=== PATIENT | male | born 1990 | race Caucasian/White ===

== ENCOUNTER 2023-09-16 08:00 | Outpatient (RCR) | payer MEDICAID, SELFPAY ==
--- NOTE | 2023-09-16 10:10 | BH.SGPN.GN ---
Behaviors/Verbalizations/Mental Status: [] Client alert and oriented, casual appearance. Eye contact fair. Motor activity appropriate. Speech within normal limits. Affect congruent, mood depressed and anxious. Thoughts linear, logical, no signs of hallucinations or delusions. Client Response/Progress/Benefit: []Pt quiet throughout group session. Did appear attentive during group discussions. Attentive during psychoeducation about Goal Setting. Listened during the discussion on common barriers which the group identified as: lack of motivation, making excuses, high expectations, fear of failure, and lack of support. Group also identified benefits sense of purpose, improved self-confidence, more motivation for other goals, and improved mental health. Seemed to benefit from increased awareness of mental health benefits of goals as well as psychoeducation on SMART goal criteria. Will continue in IOP to improve daily functioning, increase healthy coping, and prevent decompensation. Narrative Note: []
--- NOTE | 2023-09-16 11:00 | BH.SGPN.GN ---
Behaviors/Verbalizations/Mental Status: []Pt alert and oriented, casually dressed and groomed. Eye contact good. Motor activity appropriate. Speech within normal limits. Affect congruent, mood anxious and depressed. Thoughts linear, logical, no signs of hallucinations or delusions. Client Response/Progress/Benefit: [] Pt was engaged during discussion and willing to complete the worksheet challenging them to develop a personal SMART goal. Pt chose the goal of walking 2x in the next week. Pt stated this will improve motivation, increase confidence, and reduce isolation. Pt identified forgetting and low motivation as potential barriers. Identified solutions such as taking a walk with a friend or his dog, as well as setting a reminder in his phone. Pt receptive to identifying solutions for these barriers and willing to begin working on this goal. Benefited from this group by developing a short-term SMART goal related to mental health. Will continue IOP tx to increase healthy coping skill repertoire, stabilize mental health sx, and prevent decompensation. Narrative Note: []
--- NOTE | 2023-09-16 13:30 | BH.COMM ---
Communication Note Communication with Client Communication Note: Met with pt to complete initial paperwork and administer the CSSR-S screening and risk assessment. Pt is moderate per the CSSR-S screening and risk assessment. Pt denies any current suicidal ideations, but does have a history of chronic passive ideation, last occurring about a few days ago. Denies Hx of self-harming. Pt is future oriented. No guns at home. No stockpiles of medications. Pt receptive to discussion on reducing access to lethal means. Discussed case with Dr. Sanchez and pt will be admitted to [facility] tx with a diagnosis of F33.2
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
--- NOTE | 2023-09-18 09:30 | BH.NA ---
Physical Data Vital Signs Pulse Rate: 66 Blood Pressure: 125/81 Height/Weight Height: 1.7 m Weight:: 81.647 kg Weight in Pounds: 180.0 lbs Nutritional History Appetite Nutritional Instructions: Describe your appetite:: Good Additional nutritional information:: Client states he has gained about 20-30lbs in the last 2-3 months due to increased appetite. Client states he had a 150lb weight loss about 4 years ago. Functional Assessment Sleep Pattern Describe any problems with sleeping: Client states his sleep is erratic, stating sometimes he sleeps 3-4 hours and sometimes 8-10 hours. Sensory/Communication Assess Vision Problems Do you have any vision problems?: Glasses Medical Problems/History Pain Assessment Do you have acute or chronic pain?: No Additional History Additional comments:: Per client, ADHD and autism Surgical History Surgical History Have you had any surgeries? If so, list type and date:: No Substance Abuse Substance Abuse Please describe substance abuse in the last 30 days:: Client states he occasionally drinks alcohol. Client states he has been vaping nicotine off and on for 10 years. Client states he has been using marijuana multiple times per day for several years. Client denies current caffeine use. Mental Status Summary Mental Status Significant Findings/Observations on Appearance and Mood:: Client is alert and oriented x 4. Client is casually groomed. Client is cooperative with assessment. Client makes poor eye contact, usually looking down during assessment. Client's voice has normal rate and volume. Client has restricted affect. Client makes logical associations in conversation. Client denies delusions/hallucinations. Client denies SI. Suicide Assessment Suicidal Ideation Are you currently or have you been suicidal in the past?: Yes Suicidal Intentional Rating Scale (SIRS): Suicidal thoughts (past) (denies SI at this time) Physician Notification Past Psychiatric History MH Treatment Hx Past Psychiatric Medications:: Client states he had a bad reaction to SSRI's (Zoloft, Prozac) of lethargy and feeling more depressed. Client's record shows he was prescribed Lexapro. Client states he tried a few other meds but does not state what they were. Age of first mental health symptoms: Client states he first took medications for mental health since the age of 27. Describe (age, circumstance, etc) any past hospitalizations: None. Current providers for mental health treatment (counselor, psychiatrist, piano case and bench assembler, etc.): Geraldo at [facility] for counseling, client states he has seen Dawit Bhardwaj at [facility] for psychiatry in the past Fall Risk Assessment Age Age: Less than 60 Mental Status Mental Status: Willing & able to ask for assistance when needed Physical Status Physical Status: No problems Impairments Impairments: None Elimination Elimination: Continent AND independent Gait or Balance Gait or Balance: Walks independently Hx of Falls History of falls in the past 6 months: No known history Medications/Substances Medications/substances used within the past 24 hours or ordered to administer: None of the medications/substances list above Total Score Total Points:: 0 RN Summary of Impressions Impressions Recommendations Impressions: Psychiatric Issues: 1. Major depressive disorder, recurrent, severe without psychosis 2. Dysthymic disorder 3. Generalized anxiety disorder 4. PTSD 5. Nicotine and marijuana use disorders Level of Care How do the client's current symptoms and functional deficits support need for this level of care?: Client was referred to IOP by his outpatient therapist for increased depression. Client states his mental health lead him to quitting his job in May 2023. Client states he has been more depressed, has had erratic sleep, and states he has decreased his ADL's and his interaction with his family due to his depression. Client endorses anhedonia and thoughts of but denies SI. Client states he has tried several mental health medications in the past few years, but states he did not do well on SSRI's. IOP will promote gains and prevent further decompensation while providing social support and skills training.
[2023-09-18 09:50] VITALS: BP 125/81; PULSE 66
--- NOTE | 2023-09-18 11:08 | BH.SGPN.GN ---
Behaviors/Verbalizations/Mental Status: [] Pt alert and oriented, casually dressed and groomed. Eye contact poor. Motor activity appropriate. Speech within normal limits. Affect congruent, mood depressed. Thoughts linear, logical, no signs of hallucinations or delusions. Client Response/Progress/Benefit: []Pt engaged participant AEB listening attentively to others and providing input throughout group. Pt worked within their small group to identify strategies to manage inappropriate guilt. Pt did not share her personal example of inappropriate guilt, but he participated in the group activity. Pt seemed to benefit from learning about strategies to manage appropriate and inappropriate guilt. Pt will continue IOP tx to prevent decompensation, gain healthy coping skills, and reduce isolation. ? Narrative Note: []
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
--- NOTE | 2023-09-18 12:36 | BH.DR.ITP ---
Initial Treatment Plan Patient Information Visit Information: ADMISSION DATE: EXPECTED LOS: 4-6 weeks Problems/Symptoms Problem #1:: Depression Symptom:: Sadness, hopelessness, anhedonia, biological disruption of appetite and weight, biological disruption of sleep, low energy, decreased concentration, guilt, passive thoughts of , passive suicidal ideation Problem #2:: Anxiety Symptom:: Worry, rumination, panic attacks, hypervigilance, avoidance, flashbacks
--- NOTE | 2023-09-19 09:00 | BH.SGPN.GN ---
Behaviors/Verbalizations/Mental Status: [] Pt eye contact poor, casually dressed, motor activity appropriate, speech normal rate and tone, mood depressed, flat affect, thoughts linear and intact, no evidence of delusions or hallucinations. Per daily symptom tracker pt denies active SI and intention. Client Response/Progress/Benefit: [] Client appeared to listen attentively to others and sharing, mostly client appeared anxious throughout.. Client stated he did not have much to share. With assistance from therapist client able identify mental plan as showing up to IOP today despite not wanting to. Client stated his stressor is having to go to his daughter's dance recital in which she will have to see his daughter's biological dad. Appeared to benefit from support from peers. Will continue IOP tx to improve daily functioning, increase healthy coping, and prevent decompensation. Narrative Note: []
--- NOTE | 2023-09-19 10:10 | BH.SGPN.GN ---
Behaviors/Verbalizations/Mental Status: [] Eye contact is fair to good. Motor activity is appropriate. Appearance is casual. Speech is Appropriate. Mood is depressed. Affect is congruent. Thoughts are linear and logical. No evidence of psychosis. Client Response/Progress/Benefit: []Pt engaged participant AEB listening to others, engaging in activity, and providing feedback at times when prompted which is progress compared with earlier in the week. Attentive during psychoeducation and provided insight into obstacles that impede mental wellness. Pt shared with group current mental health reality and desired mental health reality. Stated he would like to get to a place where he feels more present and able to navigate his mental health sx and stressors without feeling controlled by them. Identified barriers to desired reality include: low motivation, negative self-talk, and isolation. Benefited from taking look at current mental health state and obstacles for progress. Pt to continue IOP tx to improve mood stability, reduce thought distortions, and prevent decompensation. Narrative Note: []
--- NOTE | 2023-09-19 11:05 | BH.SGPN.GN ---
Behaviors/Verbalizations/Mental Status: [] Eye contact is good. Motor activity is appropriate. Appearance is casual. Speech is Appropriate. Mood is anxious and depressed. Affect is congruent. Thoughts are linear and logical. No evidence of psychosis Client Response/Progress/Benefit: [] Pt was an active participant in group discussion and activity. Worked with group to identify strategies to help overcome barriers and obstacles to desired reality. Group developed strategies for the common barriers. Identified personal barriers to desired reality and choose one obstacle to work. Pt stated he wants to work on barrier of not accepting help by practicing asking for help with small tasks and building from there. Pt seemed to benefit from increased repertoire of healthy coping skills/strategies to overcome common barriers to moving forward. Pt is to continue IOP to improve confidence, increase healthy coping skill application, and prevent decompensation. Narrative Note: []
--- NOTE | 2023-09-19 14:29 | BH.MDN ---
Multi-Disciplinary Note Note 30-min Individual: Time Started:: 11:58 Date: 09/19/23 Purpose of session/treatment goals addressed:: To gather information on pt's current stressors, symptoms, triggers, history, and tx goals. Another goal was to build rapport and provide emotional support. Eye Contact:: Fair (tearful) Motor Activity:: Appropriate Appearance:: Casual Speech:: Appropriate and Soft Mood:: Anxious and Depressed Affect:: Constricted Thoughts:: Linear, Logical and No evidence of hallucinations/delusions noted Staff Interventions:: thought challenging, motivational interviewing, psychoeducation on: (maintenance cycles, negative core beliefs ), strengths perspective, treatment planning and goal setting Client Response:: Pt responded well to session, open to meeting with therapist. Pt reports he has benefitted from group so far this week and felt it was helpful to hear other people?s experiences in IOP. Pt shared she has been struggling with his mental health for a while now but it got worse after leaving his job in May. Pt shared he feels like a burden to his long-time girlfriend as he has not been helping much with household responsibilities or caregiving for her children, ages 6 & 8. Reports that he has struggled with getting up in the mornings and sleeps throughout the day. This has created some tension within his relationship as he recently missed one of the children?s dance recitals due to oversleeping. Pt shared he has no energy and labeled himself as lazy but she was receptive to challenging this label. Pt reported he is not finding enjoyment in anything lately and he wants to get back into hiking and playing music. Report she is otherwise unsure of what he would like to work on in therapy as he feels hopeless that anything will help. Believes he is beyond help, but was receptive of again challenging his thoughts. Pt receptive to goal setting as well as learning about depression maintenance cycles. Pt also appeared to benefit from emotional validation and encouragement from therapist as the first week of IOP can be overwhelming. Willing to complete negative core beliefs assessment for homework and identified a goal of playing Legos with the kids to try and allow himself the opportunity for enjoyment. Risks/Concerns:: Pt endorses fleeting passive thoughts of , but denies any SI, plan, or intent. Pt is future oriented and motivated. Progress Toward Goals/Plan:: Pt's first week of IOP tx and he reports so far benefitting from the group interaction and support. Pt wants to focus on reducing depression, feeling more engaged with his family, and finding a sense of connection to the world. Pt reports his girlfriend is supportive of his mental health and encouraging of him being here. Pt's symptoms are impacting his overall functioning and pt can benefit from continuing IOP tx to prevent further decompensation. Time Stopped:: 12:16
--- NOTE | 2023-09-23 09:01 | BH.SGPN.GN ---
Behaviors/Verbalizations/Mental Status: [] Pt eye contact fair, casually dressed, motor activity appropriate, speech normal rate and tone, mood anxious, constricted affect, thoughts linear and intact, no evidence of delusions or hallucinations. Per daily symptom tracker pt denies active SI and intention. Client Response/Progress/Benefit: [] Client appeared to listen attentively to others and sharing openly with group. Per daily sympton tracker client reports 4/5 for anxiety and 4/5 for depression. Client stated mental health positive as accomplishing goal over the weekend of walking at least two times. Client reported he ended up walking three times and really found it be helpful. Client reported additional positive as coming back to IOP this week feeling more present and having a better attitude. Stated current stressor is worried he won't be able to be himself for his daughter's upcoming birthday green party. Appeared to benefit from support from peers. Will continue IOP tx to improve daily functioning, increase healthy coping skills, and prevent decompensation.
--- NOTE | 2023-09-23 10:10 | BH.SGPN.GN ---
Behaviors/Verbalizations/Mental Status: [] Eye contact is good. Motor activity is appropriate. Appearance is casual. Speech is Appropriate. Mood is depressed. Affect is congruent. Thoughts are linear and logical. No evidence of psychosis. Client Response/Progress/Benefit: [] Limited participation in group discussions however was attentive. Participated in and was engaged during experiential activity. Able to relate experiential activity to group topic of FOF. Attentive during interactive discussion on what failure means to the group in which peers identified and defined failure and Fear of Failure. Attentive as peers discussed the impact of fear of failure on mental health identifying that it can cause procrastination, avoidance, self-sabotage behaviors, etc. Attentive during interactive discussion on the impact that FOF can have on mental wellness, depression, anxiety, career, relationships, and growth. Benefited from increased awareness of how the role that FOF plays in mental health and decision-making. Will continue in IOP prevent decompensation, increase healthy coping, and to improve functioning. Narrative Note: []
--- NOTE | 2023-09-23 11:08 | BH.SGPN.GN ---
Behaviors/Verbalizations/Mental Status: []Pt alert and oriented, neatly dressed and groomed. Eye contact good. Motor activity appropriate. Speech within normal limits. Affect congruent, mood hopeful. Thoughts linear, logical, no signs of hallucinations or delusions. Client Response/Progress/Benefit: []Pt responded well to session, engaged in the experiential activity and attentive throughout group processing. Pt reported fear of failure has kept pt from ?family life? and ?financial stability.? Pt completed fear of failure worksheet and was able to identify thoughts and behaviors that reinforce personal fear of failure including unrealistic expectations and having people in his life who reinforce negative thinking. Pt participated in group discussion regarding strategies to overcome fear of failure. Identified wanting to work on using delay, distract, decide, and opposite action. Appeared to benefit from increased knowledge of strategies to combat fear of failure and gaining self-awareness. Pt will continue IOP tx to prevent decompensation, gain healthy coping skills, and improve daily functioning. Narrative Note: []
--- NOTE | 2023-09-25 11:28 | BH.COMM ---
Communication Note Communication with Client Communication Note: Pt called to cancel due to illness today, reports plans to attend tomorrow if feeling better.
--- NOTE | 2023-09-26 11:28 | BH.COMM ---
Communication Note Communication with Client Communication Note: Pt scheduled for group and individual sessions on this date however did not show or call to cancel. A message was left encouraging pt to follow-up and encourage pt to attend groups tomorrow.
--- NOTE | 2023-09-27 11:30 | BH.COMM ---
Communication Note Communication with Client Communication Note: Therapist contacted pt to follow-up as he missed his last two scheduled group dates. Pt reports he had not been feeling well but is doing better today and plans to attend sessions , , and Sat of next week.
--- NOTE | 2023-10-01 10:15 | BH.SGPN.GN ---
Behaviors/Verbalizations/Mental Status: []Eye contact is good. Motor activity is appropriate. Appearance is casual. Speech is Appropriate. Mood is anxious. Affect is congruent. Thoughts are linear and logical. No evidence of psychosis. Client Response/Progress/Benefit: [] Pt was actively engaged, providing input at times, and taking notes throughout session. Connected with the topic of pitfalls and listened to group discussion on internal and external barriers that prevent from choosing a healthier path to mental wellness. Group worked together to identify examples of personal internal pitfalls and pt identified theirs as isolating, smoking, and negative self-talk. Pt benefited from group as pt learned to better identify and normalize potential barriers to improving mental health symptoms. Pt also gained awareness of the difference between external triggers and self-sabotaging behaviors. Will continue in IOP to prevent decompensation, improve daily functioning, and combat distortions. Narrative Note: []
--- NOTE | 2023-10-01 11:15 | BH.SGPN.GN ---
Behaviors/Verbalizations/Mental Status: []Pt alert and oriented, casually dressed and groomed. Eye contact good. Motor activity appropriate. Speech within normal limits. Affect congruent, mood anxious and content. Thoughts linear, logical, no signs of hallucinations or delusions. Client Response/Progress/Benefit: [] Pt receptive of session, engaged throughout AEB actively contributing and listening to discussion, as well as taking notes. Pt participated in the experiential activity and processed with group how their emotions, perspective, and reactions positively and negatively impacted the outcome. Pt identified pitfalls they struggle with and shared wanting to work on pitfall of lack of poor boundaries by practicing self-reflection and asking himself if he is okay with something daily. Benefited from identifying personal pitfalls and strategies to overcome these pitfalls. Will continue IOP tx to prevent decompensation, further improve daily functioning and positive self-talk, and promote application of healthy coping skills. Narrative Note: []
--- NOTE | 2023-10-01 15:16 | BH.MDN ---
Multi-Disciplinary Note Note 30-min Individual: Time Started:: 09:19 Date: 10/01/23 Purpose of session/treatment goals addressed:: To address tx plan goal #1 obj #1 and obj #2. Eye Contact:: Good (at times tearful) Motor Activity:: Appropriate Appearance:: Casual Speech:: Appropriate Mood:: Anxious and Depressed Affect:: Congruent Thoughts:: Linear, Logical and No evidence of hallucinations/delusions noted Staff Interventions:: motivational interviewing, CBT techniques, strengths perspective, goal setting and taught coping skills Client Response:: Pt receptive of session, actively engaged throughout. Reports despite missing several scheduled group dates and individual session from last week, he is feeling more positive. Described an increase in hope in his ability to improve and better manage his mental health symptoms. Noted he struggles with mornings which is why he has missed group on occasion. Worked with therapist to identify strategies, such as moving his alarm to the other side of the room, to increase ability to wake in time for group. Went on to indicate following through with some of the homework from his initial session. Reports successfully engaging with his daughters by playing with Legos with them, felt he was able to be more present and did well to allow himself to enjoy the moment. Discussed actively trying to apply some skills he has learned in the first week of IOP, including ?trying not to beat myself up so much?. Reports that self-deprecation and unrealistic expectations of himself are things he has struggled with for as long as he can remember. Attributes this in part to his upbringing, reporting ?my parents have been depressed for as long as I can remember? and shared they have been unhappy in their marriage for many years. Shared that watching their relationship and view on life has contributed to pt being more pessimistic about himself, his abilities, and the world at large. Reports often having a ?what could go wrong?? mindset rather than hope or optimism that something might go well for him. Noted that he feels as soon as something seems to be going well for him, something else bad happens that prevents it from staying positive. 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 Shared feeling he has ?a target on my back? attracting negative things. Connected with the importance of beginning to identify and reshape his mistaken beliefs on improving his overall perspective of himself and the world around him. Pt did not complete this for homework last session; however, indicated a desire to begin addressing his negative self-talk and creating affirmations he connects with and feel more believable to him. Willing to complete mistaken beliefs assessment for homework and check-in on later in the week in order to begin creating affirmations for pt to review daily. Risks/Concerns:: Client denies any suicidal ideations, plan, or intent as of 10/01/23. Client is future oriented and his daughters are a protective factor. Progress Toward Goals/Plan:: Some progress noted. Pt has had variable attendance which may impede ability to make continued consistent progress. Pt reports difficulties with self-confidence and negative self-talk. Reports he is beginning to challenge these thoughts and engage more with his family; however, continues to struggle with thoughts of being a burden. Pt noted he has started going for more regular walks, is looking into pursuing employment. Reports improved sense of hope and willingness to begin actively working on applying the skills he is learning in the IOP program. Recommended continued IOP tx to further improve consistency of skill application, improve confidence, promote mood stability, and prevent decompensation. Time Stopped:: 09:50
--- NOTE | 2023-10-02 09:05 | BH.SGPN.GN ---
Behaviors/Verbalizations/Mental Status: [] Eye contact is good. Motor activity is appropriate. Appearance is casual. Speech is Appropriate. Mood is anxious. Affect is congruent. Thoughts are linear and logical. No evidence of psychosis. Reviewed daily check in sheet and no reports of suicidal ideations or intent. Client Response/Progress/Benefit: [] Pt participated at times during the group discussion. Attentive. Emotion today is content. Shared with the group that he has made more effort this past week to engage with other. He reached out to friends to organize a fishing trip. I haven't made plans in awhile due to depression. Utilizing behavior activation and self-care skills. Going on daily walks which he believes has been beneficial to his mental health. Progress noted. Benefited from group support, encouragement, and feedback. Will continue in IOP to prevent decompensation, increase healthy coping, and improve functioning. Narrative Note: []
--- NOTE | 2023-10-02 10:10 | BH.SGPN.GN ---
Behaviors/Verbalizations/Mental Status: []Client alert and oriented, casually dressed and groomed. Eye contact fair. Motor activity appropriate. Speech within normal limits. Affect constricted, mood dysthymic. Thoughts linear, logical, no signs of hallucinations or delusions. Client Response/Progress/Benefit: []Pt engaged in session AEB listening attentively to others and providing input throughout. Pt engaged in activity, able to connect how it can be uncomfortable and difficult to accept when things are out of one?s own control. Pt worked with group to identify what things in life can be hard to accept. Group identified things hard to accept as: change, loss of relationship, mental health diagnosis, other?s behaviors, and finances. Pt shared he has worked on accepting that his parents do not understand mental health so he doesn't open up about his current mental health struggles to avoid unnecessary stress. Seemed to benefit from increased awareness of importance of acceptance. Pt to continue IOP tx to increase behavior activation, challenge distortions, and prevent decompensation.
--- NOTE | 2023-10-02 11:10 | BH.SGPN.GN ---
Behaviors/Verbalizations/Mental Status: []Pt alert and oriented, neatly dressed and groomed. Eye contact good. Motor activity appropriate. Speech within normal limits. Affect congruent, mood content. Thoughts linear, logical, no signs of hallucinations or delusions. Client Response/Progress/Benefit: [] Pt responded well to session AEB taking notes and contributing to discussion throughout. Pt engaged as group continued discussion on acceptance and the mental health benefits of practicing acceptance. Pt and peers identified what makes acceptance challenging and pt completed a self-reflection exercise on what is hard to accept in pt's life. Pt identified what is hard to accept in life and how it makes things harder when resists acceptance. Pt reports it is hard to accept that smoking and isolating are not healthy. Group identified strategies to increase acceptance and pt wants to work on ?adjusting goals and standards for my current self.? Pt appeared to benefit from gaining insight and learning strategies to increase acceptance. Pt will continue IOP tx to prevent decompensation, improve daily functioning, and combat distortions. Narrative Note: []
--- NOTE | 2023-10-02 11:50 | PCM.BH.PN ---
Progress Note Progress Note: History of Present Illness/Interim History: The patient is a 33-year-old single, male with a history of depression, PTSD, ADHD and possible autism spectrum disorder who is seen in follow-up at the [facility] behavioral health [facility]. I last saw the patient 2 weeks ago and at that time Wellbutrin XL was started. Patient states that he has had trouble remembering to take it in the morning as he is still not keeping regular sleep-wake hours. He took it only 3 times in the past 2 weeks. He does not like to take medications but he states that he does wish to take the Wellbutrin he is just having trouble keeping enough regular hours to take it in the morning. The patient feels that he feels a little better and feels he is benefiting from the groups in the [facility] and learning skills to help with his mental health issues. He has decreased his nicotine use in the evening and he feels that this has helped him to try to go to bed earlier and his sleep has improved and now varies from 6 to 9 hours after decreasing his nicotine use. He has also decrease his marijuana use in the past 2 weeks. He still has chronic passive thoughts of and passive, fleeting suicidal ideation. He denies active suicidal ideation, plan for suicide, homicidal ideation, hallucinations or delusions. Current Psychiatric Medications: [] Wellbutrin XL 150 mg p.o. every morning (prescribed 3 weeks ago the patient took only 3 doses total). Patient is overall averse to meds but does not wish to take this 1. Mental Status Examination: [] Patient is a 33-year-old male who is a little overweight and is casually dressed and groomed with good hygiene and appears normal for age. He is ambulatory with a normal gait and has no psychomotor agitation or retardation. He is cooperative during the interview and there is no evidence anymore of any hostility towards healthcare providers. Eye contact is fair and speech is normal rate and rhythm and fluent with no pressure. Mood is depressed. Affect is constricted but not flat. Thought process is goal-directed and organized. Thought content: There is evidence of passive thoughts of and passive, fleeting suicidal ideation which have been chronic. There is no evidence of active suicidal ideation, plan for suicide, homicidal ideation, hallucinations or delusions. Reality testing is intact. Intelligence is average or above. Judgment is intact. Insight is limited but some present. Impulsivity is moderate. Diagnoses: [] 1. Major depressive disorder, recurrent, severe without psychosis 2. Dysthymic disorder 3. Generalized anxiety disorder 4. PTSD 5. Nicotine and marijuana use disorders 6. Primary support and work issues Plan: [] The patient will continue the IOP and behavioral health at [facility] as the structure, support, education and group therapy will hopefully prevent worsening of the patient's symptoms that could result in hospitalization. He felt safe during the interview and if it anytime he does not feel safe he will let us know or go to the emergency room. The patient has an appointment with his PCP tomorrow and he will get his blood work done there. He will also inquire about [facility] testing as directed last visit. He will continue to try to use nicotine less and not after 3 or 4 PM daily. He will continue to decrease his marijuana use. Strategies were discussed to make him able to remember to take his morning medication of Wellbutrin. He will continue to follow-up with his outpatient providers and I will see the patient in follow-up in several weeks.
== END 2023-10-04 23:59 ==
LOC: BHIOP 08:00
PROVIDERS: Referring Provider Psychiatry & Neurology Psychiatry; Visit Provider Psychiatry & Neurology Psychiatry
DX: F33.2 Major depressive disorder, recurrent severe without psychotic features (principal); F41.1 Generalized anxiety disorder; F34.1 Dysthymic disorder; F43.10 Post-traumatic stress disorder, unspecified; F17.210 Nicotine dependence, cigarettes, uncomplicated; F12.90 Cannabis use, unspecified, uncomplicated; Z79.899 Other long term (current) drug therapy
CPT/HCPCS: 90792; 99214; H2012; H2020; S9480; T1002; 90832

== ENCOUNTER 2023-10-07 08:12 | Outpatient (RCR) | payer MEDICAID, SELFPAY ==
[2023-10-05 01:21] VITALS: BP 125/81; PULSE 66
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
--- NOTE | 2023-10-09 15:17 | BH.TPR ---
Treatment Plan Review Demographics Date of Admission:: 09/16/23 Date of Treatment Plan Review:: 10/09/23 Admitting Diagnoses:: 1. Major depressive disorder, recurrent, severe without psychosis 2. Dysthymic disorder 3. Generalized anxiety disorder 4. PTSD 5. Nicotine and marijuana use disorders 6. Primary support and work issues Current Diagnoses:: 1. Major depressive disorder, recurrent, severe without psychosis 2. Dysthymic disorder 3. Generalized anxiety disorder 4. PTSD 5. Nicotine and marijuana use disorders 6. Primary support and work issues Patient Status Patient's Response to Treatment:: Pt admittingly struggles with waking up in the AM and getting to IOP. Pt has cancelled or no showed 3 IOP sessions since 10/02/23. Arrived today following IOP sessions apologetic for missing group and tearful. Remorseful and indicates a desire to remain in tx. Willing to problem solve strategies to improve attendance and indicates plans to attend IOP tx tomorrow. Aware that if he does not adhere to attendance policy he will be discharged. Status of Current Problems and Symptoms: On 10/02/23 pt reported progress believing that the combination of new medications, support, and education have been very beneficial to his mental health. He also noted that the accountability and routine of IOP has also helped foster opposite-action/behavioral activation and has taken steps to begin looking for employment opportunities, as well as is engaging more with his children. Noted some decrease in depressive symptoms as well as increased motivation. Pt however has continued to isolate, has difficulties consistently applying skills and significant negative self-talk, and is not back to functioning at baseline. He did arrive following group sessions on this date and shared several psychosocial stressors involving his grandfather's health and relationship with parents resulting in increased depressive sx and difficulties motivating himself to get up in time for IOP tx. Remorseful and indicates a desire to remain in tx. Willing to problem solve strategies to improve attendance and indicates plans to attend IOP tx tomorrow. Aware that if he does not adhere to attendance policy he will be discharged. Scores indicate 12% sx reduction since admission with anger maintaining the same and will require ongoing focus, depression decreasing by 12.5%, and anxiety remaining the same, given pt?s recent influx in stressors this is progress given that his scores did not further increase for this domain. Self-reports readiness to begin looking for employment. Does indicate feeling guilty about recent behaviors but indicated a readiness to ?show-up for myself?. Progress Problem #1: Problem Name:: Depression Status of Goals:: Outcomes scores and self-report indicate ongoing sx of depression. Obj1- incomplete with ongoing work encouraged; pt is learning about depression triggers, warning signs, and coping skills through group psychoeducation; however has struggled with application of treatment materials learned. Pt is beginning to reduce isolation and expressed motivation to begin making changes in this area. Obj2- incomplete with ongoing work encouraged; awareness of mistaken beliefs and cog. distortions, however continuing to work on being able to consistently reframe and challenge these independently. Additionally, pt remains inconsistent with self-care, though has begun to engage in some practices. Team Recommendations:: Due to progress noted plan would be to continue with IOP and current treatment plan. Problem #2: Problem Name:: Anxiety Status of Goals:: Outcome scores and pt self-report indicate no change in anxiety incomplete; pt is learning about healthy calming and emotion regulation skills for managing sx of anxiety through individual sessions and group psychoeducation. Working on applying these skills however has struggled to do so consistently while managing a recent influx in psychosocial stressors. Team Recommendations:: Due to progress noted plan would be to continue with IOP and current treatment plan.
--- NOTE | 2023-10-10 09:05 | BH.SGPN.GN ---
Behaviors/Verbalizations/Mental Status: [] Eye contact is poor. Motor activity is appropriate. Appearance is casual. Speech is Appropriate. Mood is depressed. Affect is flat. Thoughts are linear and logical. No evidence of psychosis. Reviewed daily check in sheet and no reports of suicidal ideations or intent. Client Response/Progress/Benefit: [] Pt participated at times during the group discussion. Daily symptom tracker notes 4/5 for depression and 3/5 for anxiety. Emotion for today is worried. Elaborated on anxiety and worry related to psychosocial stressors family medical issues. Acknowledged that he has been inconsistent with IOP and his GF had held him accountable. It's good to be back. Check-in was very brief. No progress noted. Benefited from group support, encouragement, and feedback. Will continue in IOP to prevent decompensation, increase healthy coping, and improve functioning. Narrative Note: []
--- NOTE | 2023-10-10 10:10 | BH.SGPN.GN ---
Behaviors/Verbalizations/Mental Status: []Pt alert and oriented, casually dressed and groomed. Eye contact good. Motor activity appropriate. Speech within normal limits. Affect congruent, mood depressed. Thoughts linear, logical, no signs of hallucinations or delusions. Client Response/Progress/Benefit: []Pt was an active participant in group discussion and activity. Attentive during psychoeducation. Along with peers, pt was able to identify barriers to taking action in their life. Identified several symptoms and stressors that pt feels are holding them back from progress such as guilt, catastrophizing, and beating himself up. Stated these things have kept pt from being kind to himself. Pt shared that he wants to begin addressing beating himself up. Benefited from increased self-awareness of obstacles. Will continue IOP tx to promote mood stability, combat distorted thinking patterns, and improve self-confidence. Narrative Note: []
--- NOTE | 2023-10-10 11:10 | BH.SGPN.GN ---
Behaviors/Verbalizations/Mental Status: []Pt alert and oriented, casually dressed. Eye contact good. Motor activity appropriate. Speech within normal limits. Affect congruent, mood engaged. Thoughts linear, logical, no signs of hallucinations or delusions. Client Response/Progress/Benefit: []Pt responded well to session, taking notes and participating in worksheet discussion. Pt connected with the discussion on motion vs action steps and this helped pt learn how to set goals differently. Pt set a goal to reduce negative self-talk. Pt identified motion steps including planning a time to challenge distortions, getting something to write in, and sticking with therapy.?Pt also made action steps which included plans to follow through with journaling and keeping track of his wins. Appeared to benefit from identifying a small goal to benefit mental health. Will continue IOP tx to prevent decompensation, improve emotional regulation skills, and reduce avoidance. Narrative Note: []
--- NOTE | 2023-10-14 10:10 | BH.SGPN.GN ---
Behaviors/Verbalizations/Mental Status: [] Eye contact is good. Motor activity is appropriate. Appearance is casual. Speech is Appropriate. Mood is depressed. Affect is congruent. Thoughts are linear and logical. No evidence of psychosis. Client Response/Progress/Benefit: [] Pt receptive to session AEB contributing to group discussion, as well as listening attentively to others, and taking notes. Worked with group to brainstorm the positive and negative aspects of stress on physical and mental health as well as the impact of distress on performance, relationships, and mental health. Pt shared their top stressors to be: parenting, finances, unemployment, and family health issues. Shared when feeling overwhelmed with stress they tend to shut down, freeze, and lash out. Benefited from increased awareness of positive and negative stress as well as how stress impacts mental health and relationships. Will continue in IOP to promote utilization of distress tolerance skills, improve positive view of self, and prevent decompensation. Narrative Note: []
--- NOTE | 2023-10-14 11:10 | BH.SGPN.GN ---
Behaviors/Verbalizations/Mental Status: []Pt alert and oriented, casually dressed and groomed. Eye contact good. Motor activity appropriate. Speech within normal limits. Affect congruent, mood euthymic. Thoughts linear, logical, no signs of hallucinations or delusions. Client Response/Progress/Benefit: [] Pt was an active participant in group discussions and experiential activity. Attentive during psychoeducation on the 4 A's (Avoid, adapt, alter, accept) of coping with stress. Pt wants to work on accepting that in his co-parenting situation, some people will not change. Was able to identify the connection between the experiential activity and utilization of stress management skills. Benefited from increased awareness of stress management strategies. Pt will continue IOP tx to prevent decompensation, increase use of healthy coping skills, and improve daily functioning. Narrative Note: []
--- NOTE | 2023-10-14 11:55 | BH.MDN ---
Multi-Disciplinary Note Note 30-min Individual: Time Started:: 09:30 Date: 10/14/23 Purpose of session/treatment goals addressed:: Purpose of session was to address treatment plan goal #1 obj #1 & #2. Eye Contact:: Good Motor Activity:: Appropriate Appearance:: Casual Speech:: Appropriate Mood:: Dysthymic Affect:: Congruent Thoughts:: Linear, Logical and No evidence of hallucinations/delusions noted Staff Interventions:: psychoeducation on: (behavior activation, maintenance cycles), CBT techniques, strengths perspective and goal setting Client Response:: Pt receptive of session, actively engaged throughout. Reports feeling more positive the past few days and attributes this to following through with goals of attending IOP groups consistently and utilizing opposite action to prevent isolating in bed. Noted putting his alarm away from the bed has also been helpful with getting up in the mornings. Pt reports that following the discussion with this therapist last week, he has had more serious conversations with his girlfriend about his mental health and informed his mother that he has been in the IOP program. Shared both have been supportive of him and encouraged him to continue with treatment. Pt noted that he has started to see evidence of the impact behavior activation has on reducing sx of depression and described feeling better over the weekend when actively making an effort to engage. Reports spending time with his girlfriend and children, going for daily walks, playing and writing music, as well as completing regular household responsibilities. Shared despite not initially wanting to do some of these tasks, he has found his mood is better and he feels more like a contributing member of the family. Discussed some fears that he will not be able to sustain this recent progress and was receptive of discussion on the importance of paying attention to warning signs he is beginning to revert to behaviors reinforcing his depression. Shared some difficulties identifying warning signs for depression, but in hearing a few examples identified hygiene and not making the bed as early warning signs. Receptive of suggestion to ask his girlfriend if she has noticed any warning signs and create a list to improve his self-awareness. Reports plans to check-in with himself daily on whether he recognizes any warning signs. 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 Risks/Concerns:: No risks or concerns at this time. Pt deniea SI, plan, or intent as of this date 10/14/23 Progress Toward Goals/Plan:: Progress noted. Pt reports following through with goals over the weekend and was able to use opposite action to challenge himself not to isolate. Reports increased hope and motivation, improve willingness to engage in activities he enjoys, increased ability to be present with his supports, and improved communication. Pt reports a reduction in depressive sx; however, continues to struggle with guilt, significant negative self-talk, apathy, and worthlessness. Pt recommended continued IOP tx to improve mood stability, continue to promote behavior activation goals, and reduce negative self-talk. Time Stopped:: 10:00
--- NOTE | 2023-10-15 09:05 | BH.SGPN.GN ---
Behaviors/Verbalizations/Mental Status: [] Eye contact is good. Motor activity is appropriate. Appearance is casual. Speech is Appropriate. Mood is depressed. Affect is flat. Thoughts are linear and logical. No evidence of psychosis. Reviewed daily check in sheet and no reports of suicidal ideations or intent. Client Response/Progress/Benefit: [] Pt participated at times during the group discussion. Attentive. Shared an event in which he ?stood his ground? against negative thoughts and urges to avoid. ? I?m doing OK? ? ? much better than last week?. Taking action on improving mood AEB increased communication with support rather than internalizing thoughts and concerns. Increased vulnerability. Progress noted. Benefited from group support, encouragement, and feedback. Will continue in IOP to maintain safety, prevent decompensation, and to improve functioning. Narrative Note: []
--- NOTE | 2023-10-15 10:10 | BH.SGPN.GN ---
Behaviors/Verbalizations/Mental Status: [] Eye contact is fair. Motor activity is appropriate. Appearance is casual. Speech is Appropriate. Mood is dysthymic. Affect is constricted. Thoughts are linear and logical. No evidence of psychosis. Client Response/Progress/Benefit: [] Client responded well to session AEB sharing and listening attentively to others. Group identified types of social support (family, pets, professionals, spiritual, etc) and provided examples of benefits of having social support, including: decreased stress, increased self-esteem, encouragement, distraction, etc. Client reported he has a hard time seeing benefits to support because he doesn't ask for help. Client also participated in group discussion regarding the barriers to accessing support such as: lack of awareness, lack of trust, and low self-esteem. Client participated in experiential activity illustrating the impact communication, boundaries, and patience play in creating healthy support systems. Client appeared to benefit from increased knowledge of the benefits of social support and greater self-awareness. Will continue IOP to increase consistent use of healthy coping skills, challenge negative/distorted thoughts, and prevent decompensation.
--- NOTE | 2023-10-15 11:10 | BH.SGPN.GN ---
Behaviors/Verbalizations/Mental Status: [] Client alert and oriented, casually dressed and groomed. Eye contact good. Motor activity appropriate. Speech within normal limits. Affect congruent, mood dysthymic. Thoughts linear, logical, no signs of hallucinations or delusions. Client Response/Progress/Benefit: [] Client was an active participant throughout AEB contributing to discussion, providing personal examples, and taking notes. Client processed emotions felt in the activity and how they coped in the moment. Client provided input during discussion on the types of support our supports can provide. Client able to identify current support system and barriers that get in the way of using supports by drawing out their own support net. Client reported after identifying what type of supports they receive; they gained awareness that they could benefit from more social supports. Client identified steps to achieve this by challenging himself to follow-through with making and keeping plans with friends. Client shared increasing social supports will help them have more of a sense of belonging. Client seemed to benefit from identifying the type of support client needs to work on improving. Client recommended to continue IOP tx to promote continued application distress tolerance skills and increase self-compassion skills. Narrative Note: []
--- NOTE | 2023-10-18 09:00 | BH.SGPN.GN ---
Behaviors/Verbalizations/Mental Status: [] Eye contact good. Motor activity appropriate. Speech within normal limits. Affect congruent, mood euthymic. Thoughts linear, logical, no signs of hallucinations or delusions. Reviewed client?s symptom tracker, denies SI, plan, or intent Client Response/Progress/Benefit: [] Pt participated at times during the group discussions. Attentive. Daily symptom tracker notes 4/5 for anxiety and 3/5 for depression. Pt states he is feeling pretty well. Mental health wins include getting a haircut and a job. 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 He reports feeling excited about this as music is very important to him I went to school for it. Also reports that he stopped smoking cannabis and is noticing benefits. Overall progress noted with increase behavioral activation and healthy coping choices. Benefited from group support, encouragement, and feedback. Will continue in IOP to maintain safety, increase healthy coping, and improve functioning. Narrative Note: []
--- NOTE | 2023-10-18 10:10 | BH.SGPN.GN ---
Behaviors/Verbalizations/Mental Status: []Eye contact is good. Motor activity is appropriate. Appearance is neat. Speech is Appropriate. Mood is euthymic. Affect is congruent. Thoughts are linear and logical. No evidence of psychosis Client Response/Progress/Benefit: [] Pt was an active participant in group discussion and experiential activity. Attentive during psychoeducation on resilience. Participated during interactive discussion with peers on the definition of resilience. Able to relate experiential activity of group juggle to topics of resilience. Group worked together to identify what can impact one's ability to be resilient which included past experiences, trauma, toxic support system, lack of resources, and current mental/physical health state. Worked well with peers in small group in which they identified factors that contribute to building resilience. Pt?s group worked on the importance of building connections. Benefited from increased awareness of resilience and the factors that contribute to building resilience. Will continue in IOP to prevent decompensation, stabilize mood, and increase healthy coping. Narrative Note: []
--- NOTE | 2023-10-18 11:10 | BH.SGPN.GN ---
Behaviors/Verbalizations/Mental Status: []Pt alert and oriented, causally dressed and appropriately groomed. Eye contact fair. Motor activity appropriate. Speech within normal limits. Affect congruent, mood dysthymic. Thoughts linear, logical, no signs of hallucinations or delusions. Client Response/Progress/Benefit: [] Pt responded well to session AEB completing the resilience worksheet provided. Pt participated in the discussion and worked cooperatively with group to identify strategies to enhance each of the components discussed. Pt reports belief they already use resilience traits of??accepting that change is a part of living, moving towards goals, and self-awareness?. Pt stated they would like to continue to develop resilience trait of ?nuring a positive view of self as pt recognizes he struggles with identifying nice things about himself. Pt seemed to benefit from discussing strategies for improving personal resilience and identifying resilience traits pt already possesses. Will continue IOP tx to improve daily functioning, improve outlook, and prevent decompensation.
--- NOTE | 2023-10-22 09:05 | BH.SGPN.GN ---
Behaviors/Verbalizations/Mental Status: [] Eye contact is poor. Motor activity is appropriate. Appearance is casual. Speech is Appropriate. Mood is depressed. Affect is congruent. Thoughts are linear and logical. No evidence of psychosis. Reviewed daily check in sheet and no reports of suicidal ideations or intent. Tearful during check-in Client Response/Progress/Benefit: [] Participated when prompted. Tearful. States that his asked GF asked him to ?move out? this AM. Reports being overwhelmed and uncertain about the relationship, housing, etc. Group provided support and allowed him to vent frustrations and thoughts. He is proud of himself for showing up to IOP this AM and is attempting to utilize healthy coping strategies to manage this crisis event. Changing his perspective on the situation and using it as a way to practice skills, communicate assertively, and show others that he has increased his emotion regulation. Will continue in IOP to maintain safety, prevent decompensation, increase healthy coping, and improve functioning. Narrative Note: []
--- NOTE | 2023-10-22 09:54 | BH.MDN_ITS ---
Multi-Disciplinary Note Note 30-min Individual: Time Started:: 08:45 Date: 10/22/23 Purpose of session/treatment goals addressed:: To address current stressor impacting pt mental health and create a plan for self-care for the day. Eye Contact:: Good (tearful) Motor Activity:: Appropriate Appearance:: Casual Speech:: Appropriate Mood:: Anxious and Depressed Affect:: Congruent Thoughts:: Linear, Logical and No evidence of hallucinations/delusions noted Staff Interventions:: motivational interviewing, mindfulness skills, strengths perspective, goal setting and other (provided emotion validation and support) Client Response:: Pt arrived to group tearful and requesting to meet with this therapist. Reports that he received a letter this morning from his girlfriend of four years stating that she wants him to move out. Pt described feeling blindsided as he did not have any indication that she was unhappy in the relationship. Reports frustration that she did not have the conversation in person as they live together, and she was home when he read the letter. Reports telling her they should talk in person and then left for IOP group. Noted that he almost cancelled but wanted to have the distraction and avoid yelling or turning to an unhealthy coping mechanism. Therapist commended pt for this and discussed the importance of having a safe space to process and express his emotions. Pt discussed not wanting to return home today but also does not want to stay with his parents as they are not the most supportive of his mental health and do not like pets. Pt reports anxiety about where he and his cat can stay as he has limited supports. Did well to engage in deep breathing exercises to reduce anxiety and brainstorm potential alternatives. Does report having a friend he can reach out to for support and noted plans to sit down and br ainstorm options following group. Shared he can stay with his parents for a few days until he determines a more long-term plan. Did well to identify a self-care plan for the remainder of the day. Reports wanting to stay for group as he feels this will be a healthy distraction. Shared he will then gather a bag for the next few days until he can get the remainder of his things. Shared he plans to go for a walk and play music this afternoon to prevent isolating or sleeping all day. Noted he would like to ask for additional clarity from his partner but understands he may need to give them both time and space before reaching out. Pt calm and noted plans to take a walk around the block and then rejoin IOP group for the day. Risks/Concerns:: Pt denies suicidal ideation, plan, or intent as of this date 10/22/23 Progress Toward Goals/Plan:: Progress noted. Pt reports a significant stressor today and is doing well to regulate his emotions and process. He has maintained consistent attendance in the last two weeks, is improved upon self- care, and has taken steps to get back into activities he enjoys. 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 Pt reports increased anxiety and depression sx today given his recent break-up. Reports using opposite action however to come to group and deep breathing to regulate his emotions. Pt discussed continued difficulties with irritability in the home which he believes may have contributed to his partner ending the relationship. Struggles with ongoing self-deprecation and distorted thinking which reinforces depression and anxiety. Pt recommended continued IOP tx to promote mood stability and healthy coping as he adjusts to the loss of his relationship, as well as prevent decompensation. Time Stopped:: 09:10
--- NOTE | 2023-10-22 10:10 | BH.SGPN.GN ---
Behaviors/Verbalizations/Mental Status: [] Eye contact is fair. Motor activity is appropriate. Appearance is casual. Speech is Appropriate. Mood is dysthymic and anxious. Affect is constricted. Thoughts are linear and logical. No evidence of psychosis. Client Response/Progress/Benefit: []Pt engaged participant AEB listening to others, engaging in activity, and providing feedback at times. Attentive during psychoeducation and provided insight into obstacles that impede mental wellness. Pt shared with group current mental health reality and desired mental health reality. Stated his desired reality is feeling confident that he can navigate unexpected stressors effectively and be connected to his family. Identified barriers to desired reality include: poor boundaries, negative self-talk, and isolation. Benefited from taking look at current mental health state and obstacles for progress. Pt to continue IOP tx to continue use of healthy coping skills, challenge negative/distorted thoughts, and prevent decompensation.
--- NOTE | 2023-10-22 11:15 | BH.SGPN.GN ---
Behaviors/Verbalizations/Mental Status: [] Eye contact is good. Motor activity is appropriate. Appearance is casual. Speech is Appropriate. Mood is anxious and depressed. Affect is congruent. Thoughts are linear and logical. No evidence of psychosis Client Response/Progress/Benefit: [] Pt was an active participant in group discussion and activity. Worked with group to identify strategies to help overcome barriers and obstacles to desired reality. Group developed strategies for the common barriers. Identified personal barriers to desired reality and choose one obstacle to work. Pt stated he wants to work on barrier of poor boundaries by practicing checking in with himself to ensure he is still getting his needs met. Pt seemed to benefit from increased repertoire of healthy coping skills/strategies to overcome common barriers to moving forward. Pt is to continue IOP to improve confidence, increase healthy coping skill application, and prevent decompensation. Narrative Note: []
--- NOTE | 2023-10-24 09:00 | BH.SGPN.GN ---
Behaviors/Verbalizations/Mental Status: [] Eye contact good. Motor activity appropriate. Speech within normal limits. Affect congruent, mood anxious and dysthymic. Thoughts linear, logical, no signs of hallucinations or delusions. Reviewed client?s symptom tracker, denies SI, plan, or intent as of 10/24/23. Client Response/Progress/Benefit: [] Pt was an active participant in group discussion. Attentive. Adela symptom tracker notes /5 for depression, anxiety, and irritability. Shared with the group that his at this point his GF and him are not breaking up. They had a quality conversation yesterday in which they developed strategies to improve communication and the relationship as a whole. Overall he beleives that he has made progress in managing his mental health in the past few weeks. Stressors are that his GF and the children are going on a 10 day trip which will leave him home alone for 10 days. Concerned about loneliness and accountability issues. Progress noted per pt report. Benefited from group support, encouragement, and feedback. Will continue in IOP to maintain safety, prevent decompensation, and to improve functioning. Narrative Note: []
--- NOTE | 2023-10-24 10:15 | BH.SGPN.GN ---
Behaviors/Verbalizations/Mental Status: []Pt alert and oriented, neatly dressed and groomed. Eye contact good. Motor activity appropriate. Speech within normal limits. Affect congruent, mood euthymic. Thoughts linear, logical, no signs of hallucinations or delusions. Client Response/Progress/Benefit: [] Pt was attentive during psychoeducation and participated in group activity. Group discussed what contributes to a person?s perspective and how perspective can positively or negatively impact mental health treatment. Pt reflected on their perspective today and how it is impacting them. Pt shared his perspective is closer to being more hopeful and optimistic, but pt still has negative thinking and urges to shut down. Pt stated he is looking for opportunities to use skills and reminding himself that ?things can change.? Pt appeared to benefit from increasing awareness of different perspectives and how they can affect mental health. Pt will continue IOP tx to promote use of healthy coping skills, further combat distortions, and improve daily functioning. ? Narrative Note: []
--- NOTE | 2023-10-24 11:15 | BH.SGPN.GN ---
Behaviors/Verbalizations/Mental Status: []Pt alert and oriented, casually dressed and groomed. Eye contact fair to good. Motor activity appropriate. Speech within normal limits. Affect congruent, mood content. Thoughts linear, logical, no signs of hallucinations or delusions. Client Response/Progress/Benefit: []Pt was attentive and contributed to group discussion. Pt worked with group to identify strategies that can help with challenging negative perspective. Pt completed strengths exploration worksheet, identifying spirituality, logic, curiosity, and fairness as personal strengths. Pt able to acknowledge how these strengths are helping pt and can continue to help pt in mental health journey. Pt identified wanting to work on leaning on his strength of logic to begin practicing identifying the evidence against unhelpful thinking patterns. Benefited from identifying personal strengths and strategies for enhancing use of identified strengths. Pt will continue IOP tx to work on application of distress tolerance skills, improve mood stability, and prevent decompensation. Narrative Note: []
--- NOTE | 2023-10-25 09:00 | BH.SGPN.GN ---
Behaviors/Verbalizations/Mental Status: [] Pt alert and oriented, neatly dressed and groomed. Eye contact good. Motor activity appropriate. Speech within normal limits. Affect congruent, mood euthymic. Thoughts linear, logical, no signs of hallucinations or delusions. Reviewed pt?s symptom tracker, no risk for suicidal ideation, plan, or intent 10/25/23 Client Response/Progress/Benefit: []Pt responded well to session, attentive and engaged. Pt reports feeling calm and anxious this morning as pt is getting ready to have a week to himself. Pt reports wins today as making plans for the week to keep himself busy, handling a situation with his daughter well, and giving himself more credit. Pt is doing well in IOP and working towards tx goals. Pt's stressor today is his family leaving for vacation and not being used to being on his own. Pt appeared to benefit from reflecting on application of healthy coping skills and connecting with peers. Pt will continue IOP tx to promote gains, increase motivation, and improve self-compassion. Narrative Note: []
--- NOTE | 2023-10-25 10:05 | BH.SGPN.GN ---
Behaviors/Verbalizations/Mental Status: [] Client alert and oriented, casually dressed and groomed. Eye contact good. Motor activity appropriate. Speech within normal limits. Affect congruent, mood euthymic. Thoughts linear, logical, no signs of hallucinations or delusions. Client Response/Progress/Benefit: [] Client responded well to session, contributing to discussion and engaged during the activity. Attentive during discussion on the quote. Group identified the benefits of change which included: confidence better relationships, and improved mental health. Worked with the group to identify barriers to change, which included: anxiety and fear, confusion, external variables, and negative thinking. Client also reported reflected on past negative experiences can keep people from making changes. Client participated along with group in activity where they identified and discussed the emotions related to change. Benefited from increased awareness and understanding of emotions, benefits, and barriers related to change. Will continue IOP tx to increase emotional regulation skills and increase self care. Narrative Note: []
--- NOTE | 2023-10-25 11:05 | BH.SGPN.GN ---
Behaviors/Verbalizations/Mental Status: [] Client alert and oriented, casually dressed and groomed. Eye contact good. Motor activity appropriate. Speech within normal limits. Affect congruent, mood euthymic. Thoughts linear, logical, no signs of hallucinations or delusions. Client Response/Progress/Benefit: [] Client responded well to session, attentive throughout. Did well to process activity and work with group to relate the strategies used to overcome barriers in the activity to managing change in own life. Client identified a change they would like to make is consistent daily routine to stick too. Client identified currently being in the action stage for this particular change. Client said being more open and honest in conversations with thieir supports could help move him to next stage. Appeared to benefit from identifying a change they want and how to progress. Client will continue IOP tx to prevent decompensation, regulate emotions, and improve daily functioning. Narrative Note: []
--- NOTE | 2023-10-28 09:05 | BH.SGPN.GN ---
Behaviors/Verbalizations/Mental Status: [] Eye contact is good. Motor activity is appropriate. Appearance is casual. Speech is Appropriate. Mood is euthymic. Affect is congruent. Thoughts are linear and logical. No evidence of psychosis. Reviewed daily check in sheet and no reports of suicidal ideations or intent. Client Response/Progress/Benefit: [] Pt was an active participant in group discussions. Attentive. Emotion for today is ?anxious?. He is adjusting to ?housing the house to myself?. Concerned this would lead to decompensation, loneliness, and intrusive negative thoughts. Utilizing skills and strategies to stay engaged as well as challenge negative thoughts. Spending time with friends and made himself a list of tasks. Proud of himself as a couple of months ago he would have isolated, ruminated, and decompensated. Progress noted. Benefited from group support, encouragement, and feedback. Will continue in IOP to maintain safety, prevent decompensation, and increase healthy coping. Narrative Note: []
--- NOTE | 2023-10-28 10:10 | BH.SGPN.GN ---
Behaviors/Verbalizations/Mental Status: []Eye contact is good. Motor activity is appropriate. Appearance is casual. Speech is Appropriate. Mood is euthymic. Affect is congruent. Thoughts are linear and logical. No evidence of psychosis. Client Response/Progress/Benefit: [] Pt was an active participant in activity and taking notes during group discussion. Attentive during psychoeducation and interactive discussion on coping skills included why people use unhealthy skills. Group came up with list of unhealthy coping skills and pt identified personal ones as avoidance, and shutting down. Group discussed the effects of how unhealthy coping skills can impact mental health in a negative way. Participated during experiential activity and was able to relate the activity to group topic regarding the benefits of developing strong internal and external support system. Benefited from increased understanding of unhealthy coping skills and the need for developing healthy internal and external coping skills. Pt will continue IOP tx to prevent decompensation, promote healthy coping skills, and prevent decompensation.
--- NOTE | 2023-10-28 11:15 | BH.SGPN.GN ---
Behaviors/Verbalizations/Mental Status: []Pt alert and oriented, casually dressed and groomed. Eye contact good. Motor activity appropriate. Speech within normal limits. Affect congruent, mood content. Thoughts linear, logical, no signs of hallucinations or delusions. Client Response/Progress/Benefit: [] Pt responded well to session, taking notes and contributing when prompted. Group discussed the different categories of coping skills which included distraction, emotional release, grounding, self-love, and thought challenging. Pt participated in creating a coping skills ?menu? from the five categories of coping skills. Pt's coping skill menu included: exercise, reach out to a support, cooking, shower, 5-senses, boundary setting, and decisional balance tool. Appeared to benefit from increasing repertoire of healthy coping skills. Will continue IOP to improve view of self, challenge distortions, and prevent decompensation. Narrative Note: []
--- NOTE | 2023-10-30 09:01 | BH.SGPN.GN ---
Behaviors/Verbalizations/Mental Status: [] Eye contact is fair. Motor activity is appropriate. Appearance is casual. Speech is Appropriate. Mood euthymic. Affect is constricted. Thoughts are linear and logical. No evidence of psychosis. Reviewed daily check in sheet and no reports of suicidal ideations or intent. Client Response/Progress/Benefit: [] Pt was an active participant in group discussions. Attentive. Client reported mental health positive as getting a lot accomplished around his house on Saturday. Client stated he is feeling tired this morning because he wore himself out with getting so much done. Client stated his stressor is not having plans this weekend so worried he is going to have too much down time. Benefited from group support, encouragement, and feedback. Will continue in IOP to increase consistent use of healthy coping skills, challenge distortions, and prevent decompensation.
--- NOTE | 2023-10-30 10:10 | BH.SGPN.GN ---
Behaviors/Verbalizations/Mental Status: [] Eye contact is good. Motor activity is appropriate. Appearance is casual. Speech is Appropriate. Mood is anxious. Affect is congruent. Thoughts are linear and logical. No evidence of psychosis Client Response/Progress/Benefit: [] Client was an active participant during interactive group discussions. Attentive during psychoeducation on the six types of boundaries (physical, emotional, intellectual, sexual, time, and material) AEB note-taking and input in group discussions. Along with peers contributed to interactive discussion on defining what a boundary is in mental health. Client along with peers identified challenges to setting boundaries which included; fear of conflict, being uncomfortable, believing they are being rude or mean, etc. Reports struggling with fear of disappointing others or lack of confidence. Client along with peers identified the benefits to setting boundaries such as healthier relationships, stronger sense of self, and improved confidence. Client benefited from increased awareness and insight on the importance/benefit to setting health boundaries. Will continue in IOP to prevent decompensation, increase healthy coping skills and self-confidence, and improve functioning. Narrative Note: []
--- NOTE | 2023-10-30 11:15 | BH.SGPN.GN ---
Behaviors/Verbalizations/Mental Status: [] Eye contact is good. Motor activity is appropriate. Appearance is casual. Speech is Appropriate. Mood is euthymic. Affect is congruent. Thoughts are linear and logical. No evidence of psychosis. Client Response/Progress/Benefit: []Pt responded well to session AEB listening attentively to peers, providing some input, as well as taking notes throughout. Pt contributed throughout psychoeducation on different boundary setting styles. Participated in group discussion brainstorming various strategies for improving healthy boundary settings. Pt reported wanting to work on asking himself ?what does saying yes say no to?? ?Seemed to benefit from increased awareness of how different boundary styles can impact mental health. Will continue IOP tx to promote the use of healthy coping skills, increase self-confidence, and improve mood stability. ? Narrative Note: []
--- NOTE | 2023-10-30 11:54 | PCM.BH.PN ---
Progress Note Progress Note: History of Present Illness/Interim History: The patient is a 33-year-old single, male with a history of depression, PTSD, ADHD and possible autism spectrum disorder who is seen in follow-up at the [facility] behavioral health [facility]. I last saw the patient 1 month ago and at that time no medication changes were made as the patient is averse to medication. According to staff the patient has been consistent in attendance and engaged in the program in the past few weeks and has been making good progress. He feels he is learning valuable skills in the program and is trying to apply them to his life. The patient was able to discontinue marijuana completely 2 weeks ago and he states that he feels much more motivated now. He also decrease his nicotine to none in the evening and he is sleeping much better at 7 to 9 hours a night. He obtained his blood work and we reviewed those during the visit with his vitamin D being low at 15 and his TSH being normal. Patient no longer has any passive thoughts of and also denies any passive suicidal ideation. He also denies active suicidal ideation, plan for suicide, homicidal ideation, hallucinations or delusions. Current Psychiatric Medications: [] Wellbutrin XL 150 mg; discontinued due to side effects several weeks ago. No other medications as patient is averse to medications. Mental Status Examination: [] Patient is a 33-year-old male who is a little overweight and is casually dressed and groomed with good hygiene. He appears normal for stated age, is ambulatory with a normal gait, and has no psychomotor agitation or retardation. He is cooperative during the interview. Eye contact is good and speech is normal rate and rhythm and fluent with no pressure. Mood is depressed. Affect is mildly constricted. Thought process is goal-directed and organized. Thought content: The patient is hopeful for the future. There is no evidence of passive thoughts of , suicidal ideation, homicidal ideation, plan for suicide, hallucinations or delusions. Reality testing is intact. Judgment is intact. Insight is fair and improving. Impulsivity is moderate. Diagnoses: [] 1. Major depressive disorder, recurrent, moderate 2. Dysthymic disorder 3. Generalized anxiety disorder 4. PTSD 5. Marijuana use disorder (sober for 2 weeks) 6. Nicotine use disorder 7. Primary support and work issues Plan: [] The patient will continue the IOP and behavioral health at [facility] as the structure, support, education and group therapy will hopefully prevent worsening of the patient's symptoms that could result in hospitalization. He felt safe during the interview and if it anytime he does not feel safe he agrees to let us know or go to the emergency room. The patient will continue to try to use nicotine less and not after the afternoon daily. He will continue to stay sober from marijuana use. Vitamin D is prescribed 50,000 IU/week once a week for 3 months and prescription is sent in for this. He will continue to follow-up with his outpatient providers and I will see the patient in follow-up while he is in the [facility].
--- NOTE | 2023-11-01 09:05 | BH.SGPN.GN ---
Behaviors/Verbalizations/Mental Status: []Pt alert and oriented, neatly dressed and groomed. Eye contact good. Motor activity appropriate. Speech within normal limits. Affect congruent. mood agitated. Thoughts linear, logical, no signs of hallucinations or delusions. Reviewed pt?s symptom tracker, no risk for suicidal ideation, plan, or intent 11/01/23 Client Response/Progress/Benefit: []Pt responded well to session, attentive and engaged. Pt reports feeling on edge this morning, but pt shared he could not identify why. However, pt has been home alone without his family for almost a week and they are going to return soon which could be contributing to this feeling. Pt stated wins today as asking and receiving help from his mom, getting a lot done at home, and continuing to use his healthy coping skills. 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 Pt appeared to benefit from reflecting on application of coping skills and connecting with peers. Pt will continue IOP tx to promote mood stability, increase self-compassion, and improve self-confidence. Narrative Note: []
--- NOTE | 2023-11-01 10:15 | BH.SGPN.GN ---
Behaviors/Verbalizations/Mental Status: [] Eye contact is good. Motor activity is appropriate. Appearance is casual. Speech is Appropriate. Mood is content, anxious. Affect is congruent. Thoughts are linear and logical. No evidence of psychosis. Client Response/Progress/Benefit: [] Attentive and engaged throughout the group discussions. Attentive during psychoeducation on the 4 communication styles (Passive, Passive-Aggressive, Aggressive, and Assertive) and the obstacles to effective communication. Attentive during interactive discussion on the benefits of communicating effectively, as well as the benefits and disadvantages to the different communication styles. Reports connecting most with passive and aggressive styles often leading to damaged relationships or lack of follow-through. Benefited from increased understanding of communication styles and how these can impact effective communication. Will continue in IOP to prevent decompensation, increase healthy coping consistency, and improve functioning. Narrative Note: []
--- NOTE | 2023-11-01 11:15 | BH.SGPN.GN ---
Behaviors/Verbalizations/Mental Status: []Pt alert and oriented, casually dressed. Eye contact good. Motor activity appropriate. Speech within normal limits. Affect congruent, mood content. Thoughts linear, logical, no signs of hallucinations or delusions. Client Response/Progress/Benefit: [] Pt responded well to session AEB Pt listening attentively to others and providing input during group discussion on the pay offs and costs of the different communication styles. Pt able to connect how current communication style impacts mental health. Connected with peers? comments about importance of using assertive communication. Pt did well being assertive in the group activity and worked with group to identify potential skills for improving communication skills. Pt seemed to benefit from increasing awareness of healthy strategies to improve communication and identified wanting to work on improving his ability to better express himself and apply reinforcement. Will continue IOP tx to prevent decompensation, promote mood stability, and improve daily functioning. Narrative Note: []
== END 2023-11-03 23:59 ==
LOC: BHIOP 08:12
PROVIDERS: Referring Provider Psychiatry & Neurology Psychiatry; Visit Provider Psychiatry & Neurology Psychiatry
DX: F33.2 Major depressive disorder, recurrent severe without psychotic features (principal); F34.1 Dysthymic disorder; F41.1 Generalized anxiety disorder; F43.10 Post-traumatic stress disorder, unspecified; F17.200 Nicotine dependence, unspecified, uncomplicated; F12.90 Cannabis use, unspecified, uncomplicated; Z79.899 Other long term (current) drug therapy
CPT/HCPCS: 99214; H2012; H2020; S9480; 90832; 90834

== ENCOUNTER → 2023-10-18 | Outpatient (CLI) | payer MEDICAID, SELFPAY ==
[2023-10-18 13:50] LABS: Vitamin D,25 Hydroxy 15.5 ng/mL
[2023-10-18 14:17] LABS: Thyroid Stim Hormone (TSH) 1.98 uIU/mL (0.358-3.74)
== END | disposition home or self-care (01) ==
PROVIDERS: Referring Provider Psychiatry & Neurology Psychiatry; Visit Provider Psychiatry & Neurology Psychiatry
DX: E55.9 Vitamin D deficiency, unspecified (principal)
CPT/HCPCS: 36415; 82306; 84443

== ENCOUNTER 2023-10-21 05:13 | Emergency (ER) | payer MEDICAID, SELFPAY ==
[2023-10-21 05:14] VITALS: BP 134/71; PULSE 74; RESP 16; TEMP 36.6; O2SAT 98; BMI 23.2
--- NOTE | 2023-10-21 05:28 | EDS_ITS ---
HPI History of Present Illness Chief Complaint: Back Informant: patient Narrative Narrative: Patient presents 5 AM for several hours worth of pain in both shoulders, base of neck, upper back. He states the pain started in the right shoulder, and soon thereafter moved to the left. He states he has been very uncomfortable for hours and unable to sleep despite taking Aleve hence coming to the emergency department. He denies any acute problems in his legs, low back, numbness or tingling. No chest discomfort, dyspnea, palpitations, lightheadedness, or abdominal symptoms. He states it definitely hurts worse to move everything. Pain is more in the sides and back of his shoulders than the front. When asked if there is any obvious etiology for this he states no, but on further questioning he states this started soon after he was playing videogames at a [employer] for hours. He denies any obvious injury. [facility] Medical History PTSD (post-traumatic stress disorder) Cannabis use disorder Generalized anxiety disorder Dysthymic disorder Major depressive disorder, recurrent severe without psychotic features Contact with and (suspected) exposure to other viral communicable diseases URI (upper respiratory infection) Home Medications ?Medication ?Instructions ?Recorded ?Last Taken ?Type bupropion HCl 150 mg 24 hr tablet, 150 mg PO DAILY 30 days #30 tabs 09/18/23 Unknown Rx extended release (Wellbutrin XL) cyclobenzaprine 10 mg tablet 10 mg PO TID PRN Muscle Spasm #12 10/21/23 Unknown Rx TABLETS Allergy/AdvReac Type Severity Reaction Status Date / Time fluoxetine (From Prozac) AdvReac Mild Other Verified 10/21/23 05:20 sertraline (From Zoloft) AdvReac Mild Other Verified 10/21/23 05:20 Social History Smoking Status: Current every day smoker tobacco type: e-cigarettes ROS ROS ED Constitutional Constitutional ED: Denies chills or fever(s) Eyes Eyes: Denies change in vision ENT ENT ED: Denies ear pain or sore throat Cardiovascular Cardiovascular: Denies chest pain Respiratory/Chest Respiratory/Chest: Denies dyspnea Musculoskeletal Musculoskeletal: Reports back pain, extremity pain and neck pain Integumentary Denies Abrasions, rash or wounds Neurologic Neurologic: Denies headache(s), paresthesias or weakness EXAM Physical Exam Const Vital Signs: 10/21/23 05:14 Temperature 97.9 F Temperature Source Temporal Pulse Rate 74 Respiratory Rate 16 Blood Pressure 134/71 H Blood Pressure Mean 92 Pulse Ox 98 Oxygen Delivery Method Room Air Positive well nourished and well developed General Appearance ED: well developed and NAD HEENT Reports moist mucous membranes Negative for trauma or tenderness Eyes PERRL and EOMs intact bilaterally Neck full ROM and supple Neck Narrative: Mildly tender throughout the base of the trapezius, no midline tenderness or limited range of motion. No rashes. Resp normal respiratory effort Back/Spine normal ROM and normal to inspection Cervical Spine: Negative for cervical spine tenderness Thoracic Spine / Upper Back: Negative for thoracic spinal tenderness Lumbar Spine / Lower Back: Negative for lumbar spinal tenderness Extremity Extremity Narrative: Negative Yergason negative Speed test bilateral upper extremities. No anterior tenderness or acromioclavicular joint tenderness bilaterally. Mild subacromial tenderness bilaterally. Full range of motion throughout both shoulders including abduction, internal and external rotation. Mild discomfort with all motions. Some tenderness in bilateral trapezius musculature, less in the rhomboids. Neuro oriented x3, no focal motor deficits and no sensory deficits noted Sensorium / Orientation: alert Psych mental status grossly normal and thought process normal Skin no wounds Rashes: no rashes MDM MDM MDM Narrative Medical decision making narrative: I think this is all muscle overuse/strain/spasm. He took Aleve prior to arrival and given him an injection of Norflex and an oral tramadol discharging him with a prescription for some cyclobenzaprine and a referral to PCP. Discharge Plan Triage Chief Complaint: Back ED Provider: Moises Garnett Dx/Rx/DC Orders Clinical Impression: Trapezius muscle strain Instructions: Head Tilt Upper Trapezius Stretch, ED Neck Sprain or Strain Prescriptions: New cyclobenzaprine 10 mg tablet 10 mg PO TID PRN (Reason: Muscle Spasm) Qty: 12 0RF No Action bupropion HCl [Wellbutrin XL] 150 mg tablet extended release 24 hr 150 mg PO DAILY 30 Days Qty: 30 0RF Primary Care Provider: Care Physician,No Primary Referrals: Maru Coronel [Non-Staff] - As Needed Print Language: Swedish Disposition Disposition: Home, Self Care
[2023-10-21 05:32] VITALS: BP 117/87; PULSE 65; RESP 16; TEMP 36.7; O2SAT 98
[2023-10-21] MEDS: Orphenadrine 60 MG/2 ML Ampul IM (05:37)
[2023-10-21] MEDS: traMADol 50 MG Tablet PO (05:37)
== END 2023-10-21 06:13 | disposition home or self-care (01) ==
LOC: ED 05:33
PROVIDERS: Emergency Provider Emergency Medicine; Visit Provider Emergency Medicine
DX: S29.012A Strain of muscle and tendon of back wall of thorax, initial encounter (principal); F17.290 Nicotine dependence, other tobacco product, uncomplicated; X58.XXXA Exposure to other specified factors, initial encounter
CPT/HCPCS: 96372; 99282

== ENCOUNTER → 2023-10-23 | Outpatient (CLI) | payer MEDICAID, SELFPAY ==
[2023-10-23 16:41] LABS: Absolute Lymphocyte Count 1.14 X10^3/uL (0.83-4.51); Absolute Neutrophil Count 3.2 X10^3/uL (2.0-7.7); Basophil# 0.07 X10^3/uL; Basophil% 1.4 % (0-1); Eosinophil# 0.18 X10^3/uL; Eosinophils% 3.6 % (0-5); Hematocrit 43.3 % (40-54); Hemoglobin 15.1 g/dL (13.0-16.5); Lymphocyte # 1.14 X10^3/ul (0.83-4.51); Lymphocyte % 22.5 % (19-41); Mean Corp Hgb Conc 34.9 g/dL (32-36); Mean Corpuscular Hgb 30.3 pg (27.0-32.0); Mean Corpuscular Volume 86.9 fL (80-94); Mean Platelet Vol. 10.5 fl (6.2-12.0); Monocyte# 0.49 X10^3/uL; Monocyte% 9.7 % (0-10); NRBC Flagged by Analyzer 0 % (0-5); Neutrophil # 3.17 X10^3/uL (2.7-7.7); Neutrophil % 62.4 % (47-70); Platelet Count 344 K/mm3 (150-450); RBC Distribution Width CV 10.8 % (11.6-14.6); RBC Distribution Width SD 34.4 fl (35.1-43.9); Red Blood Count 4.98 M/mm3 (4.6-6.2); White Blood Count 5.1 K/mm3 (4.4-11.0)
[2023-10-23 16:54] LABS: ALB/GLOB Ratio 1.2 RATIO (0.9-2.4); AST(SGOT) 13 U/L (15-37); Alanine Aminotransfer ALT/SGPT 19 U/L (16-61); Albumin, Serum 4.3 g/dL (3.2-5.0); Alkaline Phosphatase 61 U/L (45-117); Anion Gap 7 (5-15); BUN 7 mg/dL (7-18); BUN/Creat Ratio 7.7 RATIO (10-20); Calcium,Total 9.8 mg/dL (8.5-10.1); Chloride 101 mmol/L (98-107); Creatinine, Serum 0.92 mg/dL (0.70-1.30); EST Glomerular Filtration Rate 102 mL/min (>60); Est Glom Filt Rate - Afr Amer 124 mL/min (>60); Globulin 3.7 g/dL (2.2-4.2); Glucose 96 mg/dL (74-106); Potassium 3.4 mmol/L (3.5-5.1); Sodium Level 136 mmol/L (136-145)
== END | disposition home or self-care (01) ==
LOC: BIMLAB 15:44
PROVIDERS: PCP Internal Medicine; Visit Provider Internal Medicine
DX: F32.1 Major depressive disorder, single episode, moderate (principal); F41.9 Anxiety disorder, unspecified
CPT/HCPCS: 36415; 80053; 85025

== ENCOUNTER 2023-11-04 07:14 | Outpatient (RCR) | payer MEDICAID, SELFPAY ==
[2023-11-04 00:16] VITALS: BP 125/81; PULSE 66
--- NOTE | 2023-11-04 09:00 | BH.SGPN.GN ---
Behaviors/Verbalizations/Mental Status: [] Eye contact is good. Motor activity is appropriate. Appearance is casual. Speech is Appropriate. Mood is anxious. Affect is congruent. Thoughts are linear and logical. No evidence of psychosis. Reviewed daily check in sheet and no reports of suicidal ideations or intent. Client Response/Progress/Benefit: [] Pt was an active participant in group discussions. Attentive. Daily symptom tracker notes 3/5 for anger and 2/5 for depression/anxiety. Emotion for today is calm. Able to identify mental health wins and healthy habits. Pt shared a triggering event yesterday which lead to increased depression, anxiety, and negative thoughts. He was able to identify triggers, utilize skills, and minimize the impact of event on his functioning. Progress noted. Increased awareness of triggers and implementation of skills. Benefited from group support, encouragment, and feedback. Will continue in IOP to prevent decompensation, stabilize mood, increase healthy coping, and improve functioning. Narrative Note: []
--- NOTE | 2023-11-04 10:10 | BH.SGPN.GN ---
Behaviors/Verbalizations/Mental Status: [] Pt alert and oriented, appropriate grooming/appearance. Eye contact good. Motor activity appropriate. Speech within normal limits. Affect congruent, mood euthymic. Thoughts linear, logical, no signs of hallucinations or delusions. Client Response/Progress/Benefit: [] Pt was an active participant in group discussions. Attentive during psychoeducation. Contributed during interactive discussions in which peers attempted to define crisis. Group identified examples of potential crisis. Group also worked together to identify unhealthy responses to crisis which included lashing out, isolation, self-harm, substance abuse, and sleep disturbances. Pt identified personal warning signs as being snappy, sleep disruption, and canceling plans. Benefited from increased understanding of crisis and awareness of personal responses to crisis. Pt will continue IOP tx to increasing functioning and prevent decompensations. Narrative Note: []
--- NOTE | 2023-11-04 15:38 | BH.MDN_ITS ---
Multi-Disciplinary Note Note 30-min Individual: Time Started:: 11:37 Date: 11/04/23 Purpose of session/treatment goals addressed:: Purpose of session was to address treatment plan goal #1 obj #1 and goal #2 obj #2 Eye Contact:: Good Motor Activity:: Appropriate Appearance:: Casual Speech:: Appropriate Mood:: Euthymic Affect:: Congruent Thoughts:: Linear, Logical and No evidence of hallucinations/delusions noted Staff Interventions:: thought challenging, CBT techniques, discharge itzel nning, strengths perspective and goal setting Client Response:: Pt receptive of session, actively engaged throughout. Reports that in the last three weeks he continues to see significant progress in his motivation, improved mood, and self-confidence. Pt shared that while his girlfriend and her children were out of town the past few days, he has been trying to focus on self-care. Shared spending time cleaning up several areas of the house, as well as continuing to pursue employment options, spent time with his family, as well as practiced more positive affirmations. Shared challenging himself to say these affirmations in the mirror over the weekend. Reports this was initially difficult and uncomfortable, but he was proud of his ability to do so and believes that continuing to do so will continue to improve his relationship with himself. Pt shared initially struggling with emotion dysregulation when his girlfriend declined pt?s offer to pick she and the children up at the airport. However, he did well to step back and try to see things from her point of view. Reflected that he has a history of poor follow- through and only recently been showing progress in changing in the area of reliability. Pt shared accepting her response and did well not to allow it to upset him for the remainder of the day. Shared wanting to continue to work on mending their relationship. Expressed a desire to incorporate more shared activities for he and her to do together, as well as activities for pt to do with each of the children as well. Reports plans to help the youngest learn to ride her bike without training wheels upon their return. Risks/Concerns:: None noted. Pt denies SI, plan, or intent as of this date 11/04/23 Progress Toward Goals/Plan:: Progress noted. Pt remains consistent with treatment attendance, follow-through on goals, and application of skills. Continues to report improved mood, hopefulness, and reduced anxiety. Pt continues to struggle at times with emotion regulation and distorted thinking patterns; however is doing better to catch these thoughts and triggers and implement healthy skills before escalating. Recommended continued IOP tx to further improve mood stability, continue to promote skill application, and prevent decompensation. Time Stopped:: 12:02
--- NOTE | 2023-11-08 09:05 | BH.SGPN.GN ---
Behaviors/Verbalizations/Mental Status: [] Eye contact is good. Motor activity is appropriate. Appearance is casual. Speech is Appropriate. Mood is euthymic. Affect is full. Thoughts are linear and logical. No evidence of psychosis. Reviewed daily check in sheet and no reports of suicidal ideations or intent. Client Response/Progress/Benefit: [] Pt was an active participant in group discussions. Attentive. Daily symptom tracker notes 3.5 for agitation and 2/5 for anxiety. Pt states that he is feeling ?content?. ? I?m feeling good about things?. Pt shared that he is planning his days to increase purpose/motivation, utilizing skills, managing cravings for cannabis, and overall feels more confident at reframing and challenging negative thoughts. Progress noted. Benefited from group support, encouragement, and feedback. Will continue in IOP to maintain gains. Narrative Note: []
--- NOTE | 2023-11-08 10:10 | BH.SGPN.GN ---
Behaviors/Verbalizations/Mental Status: []Eye contact is good. Motor activity is appropriate. Appearance is casual. Speech is Appropriate. Mood is euthymic. Affect is congruent. Thoughts are linear and logical. No evidence of psychosis. Client Response/Progress/Benefit: [] Pt was an engaged participant AEB listening attentively to others, taking notes, and providing feedback in small group discussions. Attentive during psychoeducation AEB by note taking and providing some input. Pt worked along with peers in small groups to define inappropriate guilt and appropriate guilt. Interactive discussion on examples of both inappropriate and appropriate guilt. Pt able to connect impact inappropriate guilt can have on MH. Pt gave an example of having inappropriate guilt about setting boundaries when he doesn't have time to take on more tasks. Benefited from increased awareness of guilt and the differences between appropriate and inappropriate guilt. Will continue in IOP to continue setting/maintaining boundaries, increase self-care activities, and prevent decompensation.
--- NOTE | 2023-11-08 11:15 | BH.SGPN.GN ---
Behaviors/Verbalizations/Mental Status: []Pt alert and oriented, casually dressed and groomed. Eye contact poor. Motor activity appropriate. Speech within normal limits. Affect congruent, mood euthymic. Thoughts linear, logical, no signs of hallucinations or delusions. Client Response/Progress/Benefit: []Pt engaged participant AEB listening attentively to others and providing input throughout group. Pt worked within their small group to identify strategies to manage inappropriate guilt. Pt worked with group to identify strategies for both appropriate and inappropriate guilt. Pt selected?challenging emotional reasoning when pt begins to feel inappropriate guilt over other people?s emotions. Pt seemed to benefit from learning about strategies to manage appropriate and inappropriate guilt. Pt will continue IOP tx to promote use of healthy coping skills, improve daily functioning, and increase self-confidence. Narrative Note: []
--- NOTE | 2023-11-11 09:05 | BH.SGPN.GN ---
Behaviors/Verbalizations/Mental Status: [] Eye contact fair to good. Motor activity appropriate. Speech within normal limits. Affect congruent, mood content, anxious. Thoughts linear, logical, no signs of hallucinations or delusions. Reviewed client?s symptom tracker, denies SI, plan, or intent as of 11/11/2023. Client Response/Progress/Benefit: [] Client receptive of session, attentive and willing to process with group. Reports improved sx of anxiety ?(2/5) and depression (2/5) per daily sx tracker. ?Identified mental health ?win as well as stressor as identifying he had said yes to more things than intended and instead of shutting down or numbing himself by the end of the weekend, he was able to take time to journal and play music. Reports this is a major change from how he has managed stressful weekends in the past. Went on to identify an additional win as sitting down and checking-in with his partner about how they are each doing and what they may need for the week moving forward. Reports she was receptive and he feels more connected as a result. Plans to continue with weekly check-in's moving forward. Receptive of encouragement and support from the group, as well as identified several self-care activities he can engage in to recoup from the weekend. Recommended continued IOP tx to further improve mood stability, promote consistent skill application, positive self-talk, as well as prevent decompensation. Narrative Note: []
--- NOTE | 2023-11-11 10:11 | BH.SGPN.GN ---
Behaviors/Verbalizations/Mental Status: [] Pt alert and oriented, casually dressed and groomed. Eye contact good. Motor activity appropriate. Speech within normal limits. Affect full, mood euthymic. Thoughts linear, logical, no signs of hallucinations or delusions. Client Response/Progress/Benefit: [] Pt participated in group discussion. Group worked together to identify benefits of healthy relationships which included encouragement, motivation, accountability, connectedness and minimized stress. Group identified factors that lead to unhealthy relationships which included low self esteem, trauma, lack of communication, parent's relationships growing up, and substance use. Benefited from increased insight and awareness of benefits of healthy relationships and factors that contribute to unhealthy relationships. Will continue in IOP to increase consistent use of healthy coping skills, increase self care, and prevent decompensation. Narrative Note: []
--- NOTE | 2023-11-11 11:11 | BH.SGPN.GN ---
Behaviors/Verbalizations/Mental Status: [] Pt alert and oriented, casually dressed and groomed. Eye contact fair. Motor activity appropriate. Speech within normal limits. Affect full, mood euthymic, Thoughts linear, logical, no signs of hallucinations or delusions Client Response/Progress/Benefit: [] Client responded well to session, engaged and taking notes throughout. Worked with group to connect components of the experiential activity with characteristics of healthy and unhealthy relationships. Attentive during psychoeducation about characteristics of healthy, unhealthy, and abusive relationships. Client reported he would like to continue to improve with spending time time each other along with others with planning in advance. . Appeared to benefit from identifying current healthy relationship attributes and an area client wants to work on to build healthier relationships. Client to continue IOP to increase healthy coping skills, stabilize mood, and prevent decompensation. Narrative Note: []
--- NOTE | 2023-11-14 10:10 | BH.SGPN.GN ---
Behaviors/Verbalizations/Mental Status: [] Eye contact is good. Motor activity is appropriate. Appearance is casual. Speech is Appropriate. Mood is euthymic. Affect is congruent. Thoughts are linear and logical. No evidence of psychosis. Client Response/Progress/Benefit: [] Pt receptive of session, actively engaged throughout AEB taking notes, providing input, and contributing in small group discussion. Appeared to connect with group topic of automatic thoughts and cognitive distortions, as well as the impact of thought patterns on mental health, coping behaviors, and relationships. This particular group is very heavy on psychoeducation and pt appeared to connect with distortions and how they can impact functioning. Identified struggling with catastrophizing and disqualifying the positives distortions. Pt appeared to benefit from gaining insight on distorted thinking patterns and how this impacts overall mental health. Will continue in outpatient counseling as he is d/c from IOP today to maintain mood stability and prevent decompensation. Narrative Note: []
--- NOTE | 2023-11-14 11:20 | BH.SGPN.GN ---
Behaviors/Verbalizations/Mental Status: []Pt alert and oriented, casually dressed and groomed. Eye contact good. Motor activity appropriate. Speech within normal limits. Affect congruent, mood euthymic. Thoughts linear, logical, no signs of hallucinations or delusions. Client Response/Progress/Benefit: [] Pt was an active participant during group discussion. Pt was placed in a smaller group and participated in combatting example distortions with peers. Pt was engaged in the smaller group, participated in group interactions to brainstorm answers, and appeared to be comprehending cognitive distortions. Pt could connect with all or nothing and mind reading as distortions to negatively impact him. Benefited from gaining further insight and awareness of cognitive distortions as well as practicing ways to reframe and challenge thoughts. Will continue in IOP tx to promote gains, increase consistent use of healthy coping skills, and prevent decompensation.
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
--- NOTE | 2023-11-14 14:13 | BH.MDN_ITS ---
Multi-Disciplinary Note Note 30-min Individual: Time Started:: 09:14 Date: 11/14/23 Purpose of session/treatment goals addressed:: To address any current stressors and review progress made in IOP. Eye Contact:: Good Motor Activity:: Appropriate Appearance:: Neat and Casual Speech:: Appropriate Mood:: Euthymic Affect:: Full and Congruent Thoughts:: Linear, Logical and No evidence of hallucinations/delusions noted Staff Interventions:: CBT techniques, discharge planning, strengths per spective and reviewed DSM-5 Client Response:: Pt responded well to session, open to meeting with therapist. Pt reported he did well to establish and maintain a boundary to complete necessary phone calls, despite his girlfriend guilting pt to spend time with her. Shared that in the past he would have become frustrated or given in and not completed the tasks he was working on. 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 Went on to discuss feeling sad to leave IOP but ready to do so. Reviewed pt?s DSM-5 scores from admission, review, and discharge. Pt was surprised to see he has made an overall 66% decrease and reports he can see significant changes in himself. Reflected on a ?turning point? for him in tx as realizing he is the only one who is responsible for ensuring the he ?shows up for myself? and he has been trying to remind himself to do so in some way each day. Pt reports that an increase in self-compassion and positive self-talk have significantly improved his confidence, sense of self-worth, and self-care application. Pt described increased engagement with his girlfriend and children, excitement to return to work, as well as beginning to embrace vulnerability. 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 Pt identified progress in stopping marijuana, setting boundaries, using calming skills consistently, and being more independent. Risks/Concerns:: No SI or thoughts of as of this date 11/14/23 Progress Toward Goals/Plan:: Pt has made significant progress while in IOP AEB self-report of overall improved mood and functioning. Pt's DSM-5 scores have also decreased since admission and pt feels more confident in his ability to manage his symptoms. Pt has ongoing interpersonal stress, but pt is much more capable of regulating his emotions and advocating for himself. Pt will discharge from [facility] tx and continue with outpatient providers. Pt will also begin the Aftercare program next week. Time Stopped:: 09:50
== END 2023-11-14 12:22 | disposition home or self-care (01) ==
LOC: BHIOP 07:14
PROVIDERS: PCP Internal Medicine; Referring Provider Psychiatry & Neurology Psychiatry; Visit Provider Psychiatry & Neurology Psychiatry
DX: F33.2 Major depressive disorder, recurrent severe without psychotic features (principal); F34.1 Dysthymic disorder; F41.1 Generalized anxiety disorder; F43.10 Post-traumatic stress disorder, unspecified; Z79.899 Other long term (current) drug therapy
CPT/HCPCS: H2012; H2020; S9480; 90832

== ENCOUNTER 2023-11-21 09:55 | Outpatient (RCR) | payer MEDICAID, SELFPAY ==
--- NOTE | 2023-11-21 14:00 | BH.SGPN.GN ---
Behaviors/Verbalizations/Mental Status: []Pt alert and oriented, neatly dressed and groomed. Eye contact good. Motor activity appropriate. Speech within normal limits. Affect congruent, mood content. Thoughts linear, logical, no signs of hallucinations or delusions. Client Response/Progress/Benefit: []Pt responded well to session, Pt reports they are scheduling an initial appointment with their new outpatient therapist and he is consistent with medications. Pt reflected on the coping skills pt has been using such as positive self-talk, healthy distraction, and opposite action. Pt engaged well during the discussion on intrinsic and extrinsic motivation. Pt connected with the benefits of developing strong sources of intrinsic motivation and participated in brainstorming strategies to do so. Pt identified plans to begin daily reflection on personal sources of motivation to improve own intrinsic motivation. Pt appeared to benefit from psychoeducation on different sources of motivation and ways to improve motivation. Will continue aftercare tx to maintain gains and prevent decompensation. Narrative Note: []
--- NOTE | 2023-11-21 14:00 | BH.COMM ---
Communication Note Communication with Client Communication Note: Patient completed IOP and presents today to start relapse prevention group which meets once weekly (1.5 hours) for 8 weeks. Case discussed with Dr. Clark with plan to admit with dx of F33.2
--- NOTE | 2023-11-28 09:44 | BH.MTP ---
Master Treatment Plan Patient Information Program Physician:: Dr. Anh Clark Primary Therapist:: [facility] Psychiatric Diagnoses Psychiatric Diagnoses:: 1. Major depressive disorder, recurrent, severe without psychosis 2. Dysthymic disorder 3. Generalized anxiety disorder 4. PTSD Diagnosis Code(s):: F33.2 Estimated LOS Estimated LOS (in weeks):: 8 Problem/Goal #1 Problem/Goal #1 Stated Goal:: client will maintain or see a reduction in symptoms AEB client score on the DSM 5 cross-cutting measure and improve client's daily functioning. Objectives Objective #1: Stated Objective: Client will continue to consistently apply healthy coping skills to maintain progress made in IOP tx. Interventions: Through group therapy, client will review warning signs and triggers as well as healthy coping skills learned in IOP tx to successfully maintain gains while transitioning into outpatient therapy. Discharge Criteria: Client will have accomplished this goal when client's score on the DSM-5 cross-cutting measure has maintained or reduced over a 8 week period. Target Date: 01/16/24 Review Date: 12/26/23 Objective #2: Stated Objective: Client will learn and utilize 2-3 maintenance strategies to prevent decompensation from original IOP DSM-5 scores. Interventions: Through group therapy, client will be provided with education on healthy maintenance behaviors, relapse prevention techniques, and healthy coping strategies. Discharge Criteria: Client will have accomplished this goal when can report using at least 2 maintenance skills to prevent decompensation compared to original IOP DSM-5 scores. Target Date: 01/16/24 Review Date: 12/26/23
== END 2023-12-04 23:59 ==
LOC: BHOG 09:55
PROVIDERS: PCP Internal Medicine; Referring Provider Psychiatry & Neurology Psychiatry; Visit Provider Psychiatry & Neurology Psychiatry
DX: F33.2 Major depressive disorder, recurrent severe without psychotic features (principal); F34.1 Dysthymic disorder; F41.1 Generalized anxiety disorder; F43.10 Post-traumatic stress disorder, unspecified
CPT/HCPCS: 90853

== ENCOUNTER 2023-12-05 07:18 | Outpatient (RCR) | payer MEDICAID, SELFPAY ==
--- NOTE | 2023-12-05 14:00 | BH.SGPN.GN ---
Behaviors/Verbalizations/Mental Status: []Pt alert and oriented, neatly dressed and groomed. Eye contact good. Motor activity appropriate. Speech within normal limits. Affect congruent, mood euthymic. Thoughts linear, logical, no signs of hallucinations or delusions. Client Response/Progress/Benefit: []Pt receptive of session, engaged throughout. Pt shared they did not meet with their outpatient provider since last session. Pt has been taking medications consistently and reports utilizing healthy coping skills outside of aftercare. These skills included: gratitude reflection, self-compassion, journaling, and self-talk. ?Receptive of discussion on sitting with the uncomfortable and emotional urges. Pt contributed to the discussion of distress tolerance and how building distress tolerance can help improve mood stability and resilience. Pt wants to keep building distress tolerance by sitting with his daughter when she has strong emotions instead of avoiding. Pt seemed to benefit from support from peers and increasing understanding of distress tolerance. Will continue aftercare to reinforce healthy coping skills and improve daily functioning. Narrative Note: []
--- NOTE | 2024-01-02 09:55 | BH.TPR ---
Treatment Plan Review Demographics Date of Admission:: 11/28/23 Date of Treatment Plan Review:: 01/02/24 Admitting Diagnoses:: 1. Major depressive disorder, recurrent, severe without psychosis 2. Dysthymic disorder 3. Generalized anxiety disorder 4. PTSD Current Diagnoses:: F33.2 Patient Status Patient's Response to Treatment:: Pt continues to respond well to treatment AEB pt's consistent attendance, ongoing attentiveness and engagement in group discussions, and continued reporting use of skills outside treatment environment. Pt's symptoms are still 55% lower than they were at IOP admission. Status of Current Problems and Symptoms: Pt is reporting continued improvement in his mental health with ability to manage emotions, challenging negative thoughts, and acceptance. Pt reports mild anxious and depressive symptoms currently. Pt's biggest stressors are connected to interpersonal relationships and transitioning into a new job. Progress Problem #1: Problem Name:: Pt will maintain or see a reduction in sx Status of Goals:: Obj 1 - complete with ongoing work encouraged. Pt's DSM 5 scores for anger are 50% lower than they were at IOP admission and anxiety is still 44% lower compared to IOP admission. Pt's depression scores have decreased by 75%. Obj 2 - complete with ongoing work encouraged. Pt had been reporting using opposite action, focusing on getting at least one task done even on rough days, acceptance, communicating with his supports regularly, and staying active. Team Recommendations:: Recommended pt continue IOP aftercare group in addition to attending regular outpatient counseling in order to maintain gains.
--- NOTE | 2024-01-27 09:41 | BH.MTP ---
Master Treatment Plan Patient Information Program Physician:: Dr. Anh Clark Primary Therapist:: AMI Hernandez Estimated LOS Estimated LOS (in weeks):: 8 Problem/Goal #1 Problem/Goal #1 Stated Goal:: client will maintain or see a reduction in symptoms AEB client score on the DSM 5 cross-cutting measure and improve client's daily functioning. Objectives Objective #1: Stated Objective: Client will continue to consistently apply healthy coping skills to maintain progress made in IOP tx. Interventions: Through group therapy, client will review warning signs and triggers as well as healthy coping skills learned in IOP tx to successfully maintain gains while transitioning into outpatient therapy. Discharge Criteria: Client will have accomplished this goal when client's score on the DSM-5 cross-cutting measure has maintained or reduced over a 8 week period. Target Date: 01/16/24 Review Date: 12/19/23 Objective #2: Stated Objective: Client will learn and utilize 2-3 maintenance strategies to prevent decompensation from original IOP DSM-5 scores. Interventions: Through group therapy, client will be provided with education on healthy maintenance behaviors, relapse prevention techniques, and healthy coping strategies. Discharge Criteria: Client will have accomplished this goal when can report using at least 2 maintenance skills to prevent decompensation compared to original IOP DSM-5 scores.
== END 2024-01-04 23:59 ==
LOC: BHOG 07:18
PROVIDERS: PCP Internal Medicine; Referring Provider Psychiatry & Neurology Psychiatry; Visit Provider Psychiatry & Neurology Psychiatry
DX: F33.2 Major depressive disorder, recurrent severe without psychotic features (principal); F34.1 Dysthymic disorder; F41.1 Generalized anxiety disorder; F43.10 Post-traumatic stress disorder, unspecified
CPT/HCPCS: 90853

== ENCOUNTER 2024-01-07 07:12 | Outpatient (RCR) | payer MEDICAID, SELFPAY ==
--- NOTE | 2024-01-16 09:57 | BH.DS ---
Discharge Summary Demographics Date of Admission:: 11/28/23 Discharge Date: 01/16/24 Presenting Problems at Admission:: Pt discharged from IOP tx and transitioned to IOP aftercare to maintain gains pt made in IOP and to reinforce healthy coping skills. At admission to IOP aftercare, pt continued to report symptoms of depression, anxiety, and stress within her relationship/family and occupationally. Pt also was experiencing stressors with challenging negative core beliefs, boundaries, and maintaining self-care. Reason for Discharge:: Pt has accomplished tx goals AEB ability to maintain mood stability and gains made in IOP. Pt will continue with traditional outpatient counseling. Treatment Progress During Treatment & Response: Pt responded well and made progress in IOP aftercare as evidenced by pt's participation in group discussions and self-report of consistently applying coping skills. Pt did not turn in her DSM-5, so there is no data to compare pt's symptom reduction. However, pt was reporting improved mood, energy, and outlook prior to discharge. Additionally, at discharge Pt was reporting consistently practicing self-care, using healthy coping skills, and communicating with supports. Pt still has symptoms and stressors that need resolved and processed, but pt reports overall increased ability to cope. Issues Still to be Addressed:: [place] setting, self-care maintenance, and reinforcing healthy core beliefs. Discharge Recommendations/Instructions:: Recommendations/Instructions:: Pt will continue with outpatient therapy and medication management to promote gains. Pt sees Letitia Blackburn for medication management at [facility]. Pt additionally has started with Marlena Medina for individual weekly counseling. Discharge Handout
--- NOTE | 2024-01-27 09:48 | BH.TPR ---
Treatment Plan Review Demographics Date of Admission:: 11/28/23 Date of Treatment Plan Review:: 12/30/23 Patient Status Patient's Response to Treatment:: Pt continues to respond well to treatment AEB pt's consistent attendance, ongoing attentiveness and engagement in group discussions, and continued reporting use of skills outside treatment environment. Pt's symptoms are still 55% lower than they were at IOP admission. Status of Current Problems and Symptoms: Pt is reporting continued improvement in his mental health with ability to manage emotions, challenging negative thoughts, and acceptance. Pt reports mild anxious and depressive symptoms currently. Pt's biggest stressors are connected to interpersonal relationships and transitioning into a new job. Progress Problem #1: Problem Name:: Pt will maintain or see a reduction in sx Status of Goals:: Obj 1 - complete with ongoing work encouraged. Pt's DSM 5 scores for anger are 50% lower than they were at IOP admission and anxiety is still 44% lower compared to IOP admission. Pt's depression scores have decreased by 75%. Obj 2 - complete with ongoing work encouraged. Pt had been reporting using opposite action, focusing on getting at least one task done even on rough days, acceptance, communicating with his supports regularly, and staying active. Team Recommendations:: Recommended pt continue IOP aftercare group in addition to attending regular outpatient counseling in order to maintain gains.
== END 2024-01-17 08:07 | disposition home or self-care (01) ==
LOC: BHOG 07:12
PROVIDERS: PCP Internal Medicine; Referring Provider Psychiatry & Neurology Psychiatry; Visit Provider Psychiatry & Neurology Psychiatry
DX: F32.A Depression, unspecified (principal)

== ENCOUNTER → 2024-06-04 | Outpatient (CLI) | payer MEDICAID, SELFPAY ==
--- NOTE | 2024-06-04 10:56 | RAD_ITS ---
EXAM: FOOT MIN 3 VIEWS CLINICAL HISTORY: Pain following injury. COMPARISON: None. TECHNIQUE: Three views of the foot were obtained. FINDINGS: No fracture or dislocation is seen. RAD/Foot min 3 Views IMPRESSION: No acute abnormality is seen. Reading Location: [place] [id number]
== END | disposition home or self-care (01) ==
LOC: MTRAD 10:56
PROVIDERS: PCP Internal Medicine; Referring Provider Physician Assistant Surgical; Visit Provider Physician Assistant Surgical
DX: S99.921A Unspecified injury of right foot, initial encounter (principal)
CPT/HCPCS: 73630